=== PATIENT | female | born 1955 | race Caucasian/White ===

== ENCOUNTER 2019-12-07 08:15 | Outpatient (CLI) | payer MEDICARE ==
[~2019-12-07] VITALS: Ht 167.6 cm; Wt 130.3 kg
[~2019-12-07 08:15] MED LIST: ACET-789 PO; CHOL200014 PO; DOXA1TAB2 PO; FURO20TA4 PO; IBUP-1773 PO; METO100T12 PO; POTA10TA36 PO; SERT100T8 PO; TELM1TAB28 PO
[2019-12-07] MEDS ORDERED: DOXA2TAB2 PO (09:05)
[2019-12-07] MEDS ORDERED: ALLO100T PO (09:05)
== END 2019-12-07 09:05 | disposition home or self-care (01) ==
LOC: PREOP 08:15
PROVIDERS: ATTEND Surgery
DX: Z01.818 Encounter for other preprocedural examination (principal)

== ENCOUNTER 2019-12-09 09:48 | Day surgery (SDC) | payer MEDICARE ==
[2019-12-09] VITALS (15 sets, daily range): BP systolic 135–213; BP diastolic 57–83
[~2019-12-09] VITALS: Ht 167.6 cm; Wt 130.3 kg
[~2019-12-09 09:48] MED LIST changes: +ALLO100T PO; +DOXA2TAB2 PO; +NS IV 500 ML 500 ML ONE
[2019-12-09] MEDS ORDERED: NS IV 500 ML 500 ML IV PRN (09:49)
[2019-12-09] MEDS ORDERED: fentaNYL INJECTION 100 MCG/2 ML AMP IVP ONE (10:00)
[2019-12-09] MEDS ORDERED: LIDOCAINE JELLY 2% 6 ML SYRINGE MM PRN (10:00)
--- NOTE | 2019-12-09 10:15 | Conscious Sedation/ASA ---
Conscious Sedation Pre-Proced Time 09:00 ASA Score 2 For ASA 3 and 4: Consider anesthesia and medical clearance. Also, for patients with a history of failed moderate sedation consider anesthesia. Airway Lungs Heart ASA score ASA 1: a normal healthy patient ASA 2: a patient with a mild systemic disease (mid diabetes, controlled hypertension, obesity ASA 3: a patient with a severe systemic disease that limits activity (angina, COPD, prior Myocardial infarction) ASA 4: a patient with an incapacitating disease that is a constant threat to life (CHF, renal failure) ASA 5: a moribund patient not expected to survive 24 hrs. (ruptured aneurysm) ASA 6: a declared brain- patient whose organs are being harvested. For emergent operations, add the letter E after the classification Mallampati Classification Grade 2 Sedation Plan Analgesia, Amnesia, Plan communicated to team members, Discussed options with patient/fam, Discussed risks with patient/fam The patient is an appropriate candidate to undergo the planned procedure, sedation, and anesthesia. The patient immediately re-assessed prior to indication. ELIJAH AGUAYO MD Dec 09, 2019 10:15
--- NOTE | 2019-12-09 10:16 | Progress Note-Pre Operative ---
Pre-Operative Progress Note H&P Reviewed The H&P was reviewed, patient examined and no changes noted. Date Seen by Provider: Dec 09, 2019 Time Seen by Provider: 09:00 Date H&P Reviewed: Dec 09, 2019 Time H&P Reviewed: 09:00 Pre-Operative Diagnosis: screening ELIJAH Morris MD Dec 09, 2019 10:16
--- NOTE | 2019-12-09 10:17 | Discharge Inst-Surgical ---
D/C Lap Instructions-OLIVIER New, Converted, or Re-Newed RX: RX on Chart Follow Up Activity as tolerated High Fiber Diet 25g or more per day Avoid Alcohol, Caffeine, Spicy [place] and Acid foods. Drink 64 fluid oz or more of fluids per day. Symptoms to Report: Fever over 101 degree F, Nausea/Vomiting If any problems/questions: Contact your physician or go to Emergency Room ELIJAH AGUAYO MD Dec 09, 2019 10:17
[2019-12-09] MEDS ORDERED: morphine INJ 10 MG/ML 1ML (SYR OR VIAL) IVP PRN ×2 (10:30)
[2019-12-09] MEDS ORDERED: HYDROcodone/APAP 5 MG/325 MG (LORTAB) TAB PO PRN (10:30)
[2019-12-09] MEDS ORDERED: ONDANSETRON 4 MG/2 ML (SDV) Z0FRAN IVP PRN (10:30)
[2019-12-09] MEDS ORDERED: ACETAMINOPHEN 325 MG TABLET PO PRN (10:30)
[2019-12-09] MEDS ORDERED: LIDOCAINE JELLY 2% 6 ML SYRINGE ONE (10:35)
[2019-12-09] MEDS ORDERED: MIDAZOLAM 5 MG/5 ML (VERSED) VIAL ONE ×2 (10:35→10:36)
[2019-12-09] MEDS ORDERED: fentaNYL INJECTION 100 MCG/2 ML AMP ONE ×2 (10:36)
[2019-12-09] MEDS: MIDAZOLAM 5 MG/5 ML (VERSED) VIAL IV PRN ×5 (10:50→11:06)
--- NOTE | 2019-12-09 11:42 | Progress Note-Post Operative ---
Post-Operative Progess Note Surgeon (s)/Inclusion Manager (s) Surgeon ELIJAH AGUAYO MD Inclusion Manager: none Pre-Operative Diagnosis screening colo Post-Operative Diagnosis mild chronic stage 2 ext and int hemorrhoids, mild sigmoid diverticulosis. Procedure & Operative Findings Date of Procedure 12/09/19 Procedure Performed/Findings colonoscopy Anesthesia Type cs Estimated Blood Loss Estimated blood loss (mL): minimal Specimens/Packing Specimens Removed none ELIJAH AGUAYO MD Dec 09, 2019 11:42
--- NOTE | 2019-12-09 15:52 | OPERATIVE REPORT ---
DATE OF SERVICE: 12/09/2019 ATTENDING PRIMARY CARE PHYSICIAN: Louise Oakes MD. PREOPERATIVE DIAGNOSIS: Screening colonoscopy. POSTOPERATIVE DIAGNOSES: Mild chronic stage II external and internal hemorrhoids and mild sigmoid diverticulosis. PROCEDURE PERFORMED: Colonoscopy. SURGEON: Elijah Aguayo MD. ANESTHESIA: Conscious sedation. ESTIMATED BLOOD LOSS: Minimal. FINDINGS: Same as postoperative diagnoses. DISPOSITION: The patient tolerated the procedure well. INDICATIONS FOR PROCEDURE: The patient is a 64-year-old female referred over to us for a screening colonoscopy. She has not had a colonoscopy at this point in her life. She reports that she is otherwise doing well, does not report any major issues with diarrhea nor constipation as well as no red blood per rectum nor any dark tarry stools. She is unsure about family history for she is adopted. DESCRIPTION OF PROCEDURE: The patient was brought to the endoscopy suite and laid in the left lateral decubitus position. After adequate IV pain and sedative medications and conscious sedation anesthesia, a digital rectal examination was performed. Mild chronic stage II external and internal hemorrhoids were identified, which were not actively edematous nor inflamed and no bleeding. Normal sphincter tone was felt and there were no palpable masses. The endoscope was then intubated and the anus and the rectum gently insufflated. The endoscope was then advanced through the valves of Luther of the rectum with no polyps or any neoplasms identified through the sigmoid colon, there was a mild sigmoid diverticulosis. The endoscope was then advanced to the remainder of the descending, transverse and an ascending colon to the cecum. These segments were normal. There were no polyps or any neoplasms identified throughout the colon or rectum. The endoscope was then slowly withdrawn with taking a second look and suctioning of residual air with no additional findings. The patient tolerated the procedure well. We will recommend the necessary lifestyle and diet accommodation including incorporation of a high fiber diet with at least 25 grams of fiber on a daily basis as well as significant amounts of water to promote soft stools on a daily basis. She does not need another colonoscopy for another 10 years, especially if she is asymptomatic. Job ID: [id number] DocumentID: [id number] Dictated Date: 12/09/2019 11:29:42 Vp [employer] Date: 12/09/2019 15:51:20 Dictated By: ELIJAH AGUAYO MD
== END 2019-12-09 12:40 | disposition home or self-care (01) ==
LOC: ENDO 09:48
PROVIDERS: ATTEND Surgery
DX: Z12.11 Encounter for screening for malignant neoplasm of colon (principal); K57.30 Diverticulosis of large intestine without perforation or abscess without bleeding; K64.1 Second degree hemorrhoids; I10 Essential (primary) hypertension; M19.90 Unspecified osteoarthritis, unspecified site; M10.9 Gout, unspecified; F32.9 Major depressive disorder, single episode, unspecified; Z79.899 Other long term (current) drug therapy

== ENCOUNTER → 2019-12-15 | Outpatient (CLI) | payer MEDICARE ==
[~2019-12-15] MED LIST changes: -NS IV 500 ML 500 ML ONE
--- NOTE | 2019-12-15 11:59 | Diagnostic Imaging Report ---
INDICATION: Postmenopausal. COMPARISON: None. FINDINGS: The bone mineral density of the hips and spine was measured. The T-score for the spine is 3.0. The total T-score for the left hip is 2.0 and for the right hip 2.1. The T-score for the left femoral neck is 0.8 and for the right femoral neck 1.0. All of these values are within normal limits. AP Spine L1-L4: [BMD (g/cm2): 1.560] [T-Score: 3.0] [Z-Score: 3.4] [BMD Previous: NA] [BMD % Change: NA] LT Hip Neck: [BMD (g/cm2): 1.151] [T-Score: 0.8] [Z-Score: 1.5] LT Hip Total: [BMD (g/cm2):1.256] [T-Score:2.0] [Z-Score: 2.3] [BMD Previous: NA] [BMD % Change: NA] RT Hip Neck: [BMD (g/cm2):1.172] [T-Score:1.0] [Z-Score:1.7] RT Hip Total: [BMD (g/cm2):1.267] [T-score:2.1] [Z-Score:2.4] [BMD Previous:NA] [BMD % Change:NA] *Indicates significant change from prior examination based on 95% confidence level. World Health Organization criteria for BMD interpretation classify patients as Normal (T-score at or above -1.0), Osteopenic (T-score between -1.0 and -2.5) or Osteoporotic (T-score at or below -2.5). LIMITATIONS AND MODIFICATION: None. FRACTURE RISK (FRAX SCORE): The ten year probability of (%): Major Osteoporotic Fracture: [NA] Hip Fracture: [NA] IMPRESSION: 1. The bone mineral density of the spine, the hips, and the femoral necks is within normal limits. 2. See below National Osteoporosis Foundation guidelines on when to potentially initiate pharmacologic therapy. Based on the National Osteoporosis Foundation Guidelines, pharmacologic treatment should be initiated in any of the following, unless clinical conditions suggest otherwise: * Any patient with prior fragility fracture of the hip or vertebrae. A spine fracture indicates 5X risk for subsequent spine fracture and 2X risk for subsequent hip fracture. * Osteoporosis (T-score <-2.5). * Postmenopausal women and men age 50 and older with low bone mass/osteopenia (T-score between -1.0 and -2.5) by DXA and 10-year major osteoporotic fracture greater than 20% or a 10-year probability of hip fracture greater than 3%. These fracture risks are supplied above in the FRAX score, if applicable. * Clinician judgement and/or patient preferences may indicate treatment for people with 10-year fracture probabilities above or below these levels. Dictated by: Dictated on workstation # [id number]
--- NOTE | 2019-12-17 09:55 | Diagnostic Imaging Report ---
INDICATION: Routine screening. Comparison is made with prior mammogram 09/05/2015 and 02/15/2015. 2-D and 3-D bilateral screening mammography was performed with CAD. Both breasts remain heterogeneously dense, limiting the sensitivity of mammography. Benign calcifications in both breasts are again noted. Biopsy clip in the central left breast remains. Circumscribed nodular densities in the inner and outer aspect of the left breast are stable. No spiculated mass or malignant appearing microcalcifications are seen. Axillae are unremarkable. IMPRESSION: BI-RADS Category 2 No mammographic features suspicious for malignancy are identified. ACR BI-RADS Category 2: Benign findings. Result letter will be mailed to the patient. Note: At least 10% of breast cancer is not imaged by mammography. Dictated by: Dictated on workstation # [id number]
== END ==
LOC: RAD 10:00
PROVIDERS: ATTEND Family Medicine
DX: Z12.31 Encounter for screening mammogram for malignant neoplasm of breast (principal); Z78.0 Asymptomatic menopausal state
CPT/HCPCS: 77063; 77067; 77080

== ENCOUNTER → 2021-03-16 | Outpatient (CLI) | payer MEDICARE ==
[~2021-03-16] MED LIST changes: -POTA10TA36 PO; +POTA10TA37 PO; +SERT-414 PO; -SERT100T8 PO; -TELM1TAB28 PO; +TELM1TAB37 PO
--- NOTE | 2021-03-16 09:39 | Diagnostic Imaging Report ---
PROCEDURE: US Hepatic (Liver). TECHNIQUE: Multiple real-time grayscale images were obtained over the right upper quadrant in various projections. INDICATION: Epigastric pain. FINDINGS: The liver measures up to 20 cm and demonstrates increased echogenicity compatible with fatty infiltration. Hepatopetal flow in main portal vein. Common bile duct measures up to 1.2 cm. There appears to be cholelithiasis. There is mild gallbladder wall thickening up to 3 mm. Pancreas not well visualized. Aorta is nonaneurysmal. IVC is patent. Right kidney is normal. No ascites IMPRESSION: Hepatomegaly and fatty infiltration of the liver. Cholelithiasis and mild gallbladder wall thickening up to 3 mm. Prominence of the common bile duct up to 1.2 cm. The possibility of choledocholithiasis cannot be excluded. Recommend clinical correlation, if warranted followup with MRCP. Dictated by: Dictated on workstation # [id number]
== END ==
LOC: RAD 08:15
PROVIDERS: ATTEND Nurse Practitioner Family
DX: K76.0 Fatty (change of) liver, not elsewhere classified (principal); K80.20 Calculus of gallbladder without cholecystitis without obstruction; K82.8 Other specified diseases of gallbladder; R16.0 Hepatomegaly, not elsewhere classified; I10 Essential (primary) hypertension
CPT/HCPCS: 76705

== ENCOUNTER 2021-12-06 11:03 | Emergency (ER) | payer MEDICARE ==
[~2021-12-06] VITALS: Ht 167 cm; Wt 133.0 kg
[~2021-12-06 11:03] MED LIST changes: +POTA-177 PO; -POTA10TA37 PO
--- NOTE | 2021-12-06 11:35 | Diagnostic Imaging Report ---
INDICATION: Chest pain. TECHNIQUE: AP view of the chest is obtained. COMPARISON: No previous study is available for comparison at this time. FINDINGS: There is mild cardiomegaly. Pulmonary vascularity is unremarkable. There is no pneumothorax, consolidation or overt edema. No pleural fluid is seen. IMPRESSION: Cardiomegaly without acute abnormality. Dictated by: Dictated on workstation # [id number]
[2021-12-06 11:40] LABS: BASOPHILS % (AUTO) 0 % (0-10); EOSINOPHILS # (AUTO) 0.2 10^3/uL (0.0-0.3); EOSINOPHILS % (AUTO) 3 % (0-10); HEMATOCRIT 35 % (35-52); HEMOGLOBIN 11.4 g/dL (11.5-16.0); LYMPHOCYTES # (AUTO) 0.9 10^3/uL (1.0-4.0); LYMPHOCYTES % (AUTO) 13 % (12-44); MEAN CORPUSCULAR HEMOGLOBIN 30 pg (25-34); MEAN CORPUSCULAR HGB CONC 33 g/dL (32-36); MEAN CORPUSCULAR VOLUME 92 fL (80-99); MEAN PLATELET VOLUME 11.2 fL (9.0-12.2); MONOCYTES # (AUTO) 0.4 10^3/uL (0.0-1.0); MONOCYTES % (AUTO) 6 % (0-12); NEUTROPHILS % (AUTO) 78 % (42-75); PLATELET COUNT 152 10^3/uL (130-400); WHITE BLOOD COUNT 6.5 10^3/uL (4.3-11.0)
[2021-12-06] MEDS ORDERED: ASPIRIN 81 MG CHEW (CHILDREN'S ASA) PO ONE (11:45)
[2021-12-06] MEDS: NITROGLYCERIN 0.4 MG SL TABS BTL 25'S SL PRN ×2 (11:47→12:11)
--- NOTE | 2021-12-06 11:50 | ED Chest Pain ---
General Chief Complaint: Chest Pain Stated Complaint: CHEST PAIN Nursing Triage Note: Pt reports CP starting around 0400 this morning. Pt has not had any home meds today. Source: patient Exam Limitations: no limitations History of Present Illness Date Seen by Provider: Dec 06, 2021 Time Seen by Provider: 11:30 Initial Comments Patient is a 66 yo F who presents to the ED with anterior chest pain that began acutely this AM at 0400. She states the pain woke her up from sleep. The pain was initially an 8/10 but has slightly improved since that time. She states the pain is constant but intermittently worsens. The pain does not radiate anywhere. She denies any tearing sensation. Had some nausea initially but this has since improved. No diaphoresis or shortness of air. No acutely increased dependent edema. No URI symptoms recently. Has not had anything to eat today. No alleviating or aggravating factors noted. Recently had a cholecystectomy in [facility] but denies any lingering issues. Is immunized and boosted for COVID. Denies any h/o smoking. Timing/Duration: 4-6 hours Severity/Quality: moderate Location: substernal, epigastric Radiation: no radiation Activities at Onset: none Prior CP/Workup: no prior chest pain ASA po SWEAT BAND SEWER: No NTG SL SWEAT BAND SEWER: No Associated Symptoms: denies symptoms Allergies and Home Medications Allergies Coded Allergies: No Known Drug Allergies (Unverified , 09/15/15) Patient Home Medication List Home Medication List Reviewed: Yes Allopurinol (Allopurinol) 100 Mg Tablet, 100 MG PO DAILY, (Reported) Entered as Reported by: CALIXTO VOGEL on 12/07/19 09 Doxazosin Mesylate (Doxazosin Mesylate) 2 Mg Tablet, 2 MG PO BID, (Reported) Entered as Reported by: CALIXTO VOGEL on 12/07/19 0905 Metoprolol Tartrate (Metoprolol Tartrate) 100 Mg Tablet, 100 MG PO BID, (Reported) Entered as Reported by: CALIXTO VOGEL on 09/15/15 0925 Potassium Chloride (Potassium Chloride) 10 Meq Tab.er.prt, 10 MEQ PO BID, (Reported) Entered as Reported by: CALIXTO VOGEL on 09/15/15 0925 Sertraline HCl (Sertraline HCl) 100 Mg Tablet, 100 MG PO DAILY, (Reported) Entered as Reported by: CALIXTO VOGEL on 09/15/15924 Telmisartan/Hydrochlorothiazid (Telmisartan-Hctz 80-25 mg Tab) 1 Each Tablet, 1 EACH PO DAILY, (Reported) Entered as Reported by: CALIXTO VOGEL on 09/15/15924 Review of Systems Review of Systems Constitutional: no symptoms reported EENTM: No Symptoms Reported Respiratory: No Symptoms Reported Cardiovascular: See HPI, Chest Pain Gastrointestinal: See HPI, Nausea Genitourinary: No Symptoms Reported Musculoskeletal: no symptoms reported Skin: no symptoms reported Psychiatric/Neurological: No Symptoms Reported Endocrine: No Symptoms Reported Hematologic/Lymphatic: No Symptoms Reported Past Gpvqwzp-Jmdmvx-Cjaice Hx Patient Social History Tobacco Use?: No Substance use?: No Alcohol Use?: No Immunizations Up To Date COVID19 Vaccine Automobile Accessories Installer: [email or web address] Seasonal Allergies Seasonal Allergies: No Past Medical History Surgery/Hospitalization HX: hypertension, recent gallbladder surgery Surgeries: Yes (breast bx x2, bilat TKR, D&C) Section, Joint Replacement Respiratory: No Cardiac: Yes Hypertension Neurological: No Reproductive Disorders: Yes Genitourinary: No Gastrointestinal: No Musculoskeletal: Yes Arthritis, Gout Endocrine: No HEENT: No Cancer: No Psychosocial: Yes Depression Integumentary: No Blood Disorders: No Family Medical History No Pertinent Family Hx Physical Exam Vital Signs Vital Signs - First Documented 12/06/21 11:09 Temp 36.6 Pulse 59 B/P (MAP) 234/110 (151) Pulse Ox 98 O2 Delivery Room Air Capillary Refill : Less Than 3 Seconds Height, Weight, BMI Height: 5'6" Weight: 300lbs. 0.0oz. 136.559824ps; 47.00 BMI Method:Stated General Appearance: No Apparent Distress, WD/WN HEENT: PERRL/EOMI, TMs Normal, Normal ENT Inspection, Pharynx Normal Neck: Full Range of Motion, Normal Inspection, Non Tender Respiratory: Chest Non Tender, Lungs Clear, Normal Breath Sounds, No Accessory Muscle Use, No Respiratory Distress Cardiovascular: Regular Rate, Rhythm, No Edema, No Gallop, No JVD, No Murmur, Normal Peripheral Pulses Gastrointestinal: Normal Bowel Sounds, No Organomegaly, No Pulsatile Mass, Non Tender (epigastric TTP without guarding) Extremity: Normal Capillary Refill, Normal Inspection, Normal Range of Motion, Non Tender, No Calf Tenderness, No Pedal Edema Neurologic/Psychiatric: Alert, Oriented x3, No Motor/Sensory Deficits, Normal Mood/Affect Skin: Normal Color, Warm/Dry Progress/Results/Core Measures Results/Orders Lab Results Laboratory Tests Test 12/06/21 11:20 Range/Units White Blood Count 6.5 4.3-11.0 10^3/uL Red Blood Count 3.83 3.80-5.11 10^6/uL Hemoglobin 11.4 L 11.5-16.0 g/dL Hematocrit 35 35-52 % Mean Corpuscular Volume 92 80-99 fL Mean Corpuscular Hemoglobin 30 25-34 pg Mean Corpuscular Hemoglobin Concent 33 32-36 g/dL Red Cell Distribution Width 14.6 H 10.0-14.5 % Platelet Count 152 130-400 10^3/uL Mean Platelet Volume 11.2 9.0-12.2 fL Immature Granulocyte % (Auto) 0 % Neutrophils (%) (Auto) 78 H 42-75 % Lymphocytes (%) (Auto) 13 12-44 % Monocytes (%) (Auto) 6 0-12 % Eosinophils (%) (Auto) 3 0-10 % Basophils (%) (Auto) 0 0-10 % Neutrophils # (Auto) 5.0 1.8-7.8 10^3/uL Lymphocytes # (Auto) 0.9 L 1.0-4.0 10^3/uL Monocytes # (Auto) 0.4 0.0-1.0 10^3/uL Eosinophils # (Auto) 0.2 0.0-0.3 10^3/uL Basophils # (Auto) 0.0 0.0-0.1 10^3/uL Immature Granulocyte # (Auto) 0.0 0.0-0.1 10^3/uL Prothrombin Time 14.2 12.2-14.7 SEC INR Comment 1.1 0.8-1.4 Activated Partial Thromboplast Time 32 24-35 SEC D-Dimer 0.45 0.00-0.49 UG/ML Sodium Level 143 135-145 MMOL/L Potassium Level 3.7 3.6-5.0 MMOL/L Chloride Level 100 98-107 MMOL/L Carbon Dioxide Level 31 21-32 MMOL/L Anion Gap 12 5-14 MMOL/L Blood Urea Nitrogen 16 7-18 MG/DL Creatinine 0.77 0.60-1.30 MG/DL Estimat Glomerular Filtration Rate 84 BUN/Creatinine Ratio 21 Glucose Level 166 H 70-105 MG/DL Calcium Level 9.9 8.5-10.1 MG/DL Corrected Calcium 9.6 8.5-10.1 MG/DL Magnesium Level 1.8 1.6-2.4 MG/DL Total Bilirubin 1.6 H 0.1-1.0 MG/DL Aspartate Amino Transf (AST/SGOT) 24 5-34 U/L Alanine Aminotransferase (ALT/SGPT) 21 0-55 U/L Alkaline Phosphatase 65 40-136 U/L Total Creatine Kinase 56 29-168 U/L Creatine Kinase MB 0.8 <6.6 NG/ML Myoglobin 42.9 10.0-92.0 NG/ML Troponin I < 0.028 <0.028 NG/ML B-Type Natriuretic Peptide 142.6 H <100.0 PG/ML Total Protein 7.3 6.4-8.2 GM/DL Albumin 4.4 3.2-4.5 GM/DL My Orders Orders - FRANCIS ARROYO [employer] Nitroglycerin 0.4 Mg Btl 25's (Nitrostat (12/06/21 11:45) Aspirin Chewable Tablet (Baby Aspirin Ch (12/06/21 11:45) Antacid Suspension (Mylanta Suspension (12/06/21 12:45) Medications Given in ED Current Medications Medications Dose Ordered Sig/Larisa Route Start Time Stop Time Status Last Admin Dose Admin Al Hydrox/Mg Hydrox/Simethicone 30 ml ONCE ONCE PO 12/06/21 12:45 12/06/21 12:46 DC 12/06/21 12:42 30 ML Aspirin 324 mg ONCE ONCE PO 12/06/21 11:45 12/06/21 11:46 DC 12/06/21 11:47 324 MG Nitroglycerin 0.4 mg UD PRN SL 12/06/21 11:45 12/06/21 12:11 0.4 MG Vital Signs/I&O 12/06/21 11:09 Temp 36.6 Pulse 59 B/P (MAP) 234/110 (151) Pulse Ox 98 O2 Delivery Room Air Blood Pressure Mean: 151 Progress Progress Note #1: Time: 12:30 Progress Note Pt states her epigastric/lower substernal pain persists despite administration of nitroglycerin and ASA. She does have some mild subxyphoid epigastric TTP. Cardiopulmonary exam remains reassuring. Pt is hypertensive but states she did not take any of her normal antihypertensives today. Laboratory evaluation is reassuring. She has a grossly normal CBC, coags, and CMP. Troponin is normal. No need for a repeat as the pain has been present for almost 6 hours at the time of initial presentation. Chest xray shows mild cardiomegaly but nothing else acute. BNP is mildly elevated but patient does not exhibit symptoms c/w CHF exacerbatio n. Will give a dose of Maalox and see if this improves symptoms. Progress Note #2: Progress Note Pt with marked improvement after the Maalox. Further makes cardiopulmonary origin of symptoms less likely. Will discharge home with recs for supportive care and follow-up with PCP for recheck in 2-3 days. Return precautions for urgent symptomology discussed. Patient verbalized understanding. Initial ECG Impression Date: Dec 06, 2021 Initial ECG Impression Time: 11:13 Initial ECG Rate: 060 Initial ECG Rhythm: Normal Sinus Initial ECG Intervals: QT (slightly prolonged) Initial ECG Impression: Nonspecific Changes Diagnostic Imaging Diagonstic Imaging: Xray Plain Films/CT/US/NM/MRI: chest Reviewed: Reviewed Night [facility] Study Departure Impression Primary Impression: Gastritis Disposition: 01 HOME, SELF-CARE Condition: Improved Departure-Patient Inst. Decision time for Depature: 13:25 Referrals: TIM OROZCO MD (PCP/Family) Primary Care Physician Patient Instructions: Gastritis (DC) Scripts Sucralfate (Sucralfate) 1 Gram/10 Ml Oral.susp 1 GM PO TIDWM for 14 Days, #21 ML Prov: FRANCIS ARROYO APRN 12/06/21 FRANCIS ARROYO APRN Dec 06, 2021 11:50
[2021-12-06 11:52] LABS: ALBUMIN 4.4 GM/DL (3.2-4.5); POTASSIUM 3.7 MMOL/L (3.6-5.0)
[2021-12-06 11:53] LABS: CALCIUM 9.9 MG/DL (8.5-10.1)
[2021-12-06 11:54] LABS: INR 1.1 (0.8-1.4); PROTHROMBIN TIME PATIENT 14.2 SEC (12.2-14.7); TOTAL PROTEIN 7.3 GM/DL (6.4-8.2)
[2021-12-06 11:56] LABS: BILIRUBIN,TOTAL 1.6 MG/DL (0.1-1.0)
[2021-12-06 11:58] LABS: CREATININE SERUM 0.77 MG/DL (0.60-1.30)
[2021-12-06 12:01] LABS: MAGNESIUM 1.8 MG/DL (1.6-2.4)
[2021-12-06 12:09] LABS: CREATINE KINASE MB 0.8 NG/ML (<6.6)
[2021-12-06] MEDS ORDERED: ANTACID SUSP 30 ML UDC (MYLANTA) PO ONE (12:45)
[2021-12-06] MEDS ORDERED: SUCR1ORA15 PO (13:26)
[2021-12-06 14:37] VITALS: BP 217/91
== END 2021-12-06 14:37 | disposition home or self-care (01) ==
LOC: EDUNIT# 11:03 → ER 11:07
DX: K29.70 Gastritis, unspecified, without bleeding (principal); R79.89 Other specified abnormal findings of blood chemistry; Z90.49 Acquired absence of other specified parts of digestive tract; Z28.310 Unvaccinated for COVID-19
CPT/HCPCS: 36415; 71045; 80053; 82550; 82553; 83735; 83874; 83880; 84484; 85025; 85379; 85610; 85730; 93005; 93041

== ENCOUNTER 2021-12-08 08:17 | Observation (INO) | payer MEDICARE ==
[~2021-12-08] VITALS: Ht 167.6 cm; Wt 135.3 kg
[~2021-12-08 08:17] MED LIST changes: +SUCR1ORA15 PO
[2021-12-08] MEDS ORDERED: ANTACID SUSP 30 ML UDC (MYLANTA) PO ONE (08:45)
[2021-12-08] MEDS ORDERED: ASPIRIN 81 MG CHEW (CHILDREN'S ASA) PO ONE (08:45)
[2021-12-08] MEDS ORDERED: ONDANSETRON 4 MG/2 ML (SDV) Z0FRAN IVP ONE (08:45)
[2021-12-08] MEDS ORDERED: NITROGLYCERIN 0.4 MG SL TABS BTL 25'S SL PRN (08:45)
[2021-12-08] MEDS ORDERED: LIDOCAINE 2% VISCOUS 15 ML UDC PO ONE (08:45)
[2021-12-08 08:47] LABS: BASOPHILS % (AUTO) 0 % (0-10); EOSINOPHILS % (AUTO) 1 % (0-10); HEMATOCRIT 35 % (35-52); HEMOGLOBIN 11.3 g/dL (11.5-16.0); LYMPHOCYTES # (AUTO) 0.8 10^3/uL (1.0-4.0); LYMPHOCYTES % (AUTO) 9 % (12-44); MEAN CORPUSCULAR HEMOGLOBIN 29 pg (25-34); MEAN CORPUSCULAR HGB CONC 33 g/dL (32-36); MEAN CORPUSCULAR VOLUME 90 fL (80-99); MEAN PLATELET VOLUME 11.2 fL (9.0-12.2); MONOCYTES # (AUTO) 0.6 10^3/uL (0.0-1.0); MONOCYTES % (AUTO) 6 % (0-12); NEUTROPHILS # (AUTO) 7.2 10^3/uL (1.8-7.8); NEUTROPHILS % (AUTO) 83 % (42-75); PLATELET COUNT 148 10^3/uL (130-400); WHITE BLOOD COUNT 8.6 10^3/uL (4.3-11.0)
[2021-12-08 08:57] LABS: ALBUMIN 4.6 GM/DL (3.2-4.5); CHLORIDE 99 MMOL/L (98-107); POTASSIUM 3.3 MMOL/L (3.6-5.0); SODIUM 142 MMOL/L (135-145)
[2021-12-08 08:59] LABS: CALCIUM 9.6 MG/DL (8.5-10.1)
[2021-12-08 09:00] LABS: GLUCOSE 183 MG/DL (70-105); TOTAL PROTEIN 7.6 GM/DL (6.4-8.2)
[2021-12-08 09:01] LABS: CARBON DIOXIDE 29 MMOL/L (21-32)
[2021-12-08 09:02] LABS: BILIRUBIN,TOTAL 2.5 MG/DL (0.1-1.0)
[2021-12-08 09:03] LABS: ALKALINE PHOSPHATASE 68 U/L (40-136); INR 1.1 (0.8-1.4)
[2021-12-08 09:04] LABS: CREATININE SERUM 0.73 MG/DL (0.60-1.30); GFR ESTIMATED 90
[2021-12-08 09:05] LABS: BUN/CREATININE RATIO 19
[2021-12-08 09:06] LABS: ALANINE AMINOTRANSFERASE 19 U/L (0-55); MAGNESIUM 2.1 MG/DL (1.6-2.4)
--- NOTE | 2021-12-08 09:20 | Diagnostic Imaging Report ---
EXAMINATION: Chest 1 view HISTORY: Chest pain COMPARISON: 12/06/2021 FINDINGS: Heart size and pulmonary vasculature are stable. The lungs are clear without consolidation, pleural effusion, or pneumothorax. The osseous structures are intact. IMPRESSION: 1. Stable cardiomegaly without other acute radiographic abnormality in the chest. Dictated by: Dictated on workstation # [id number]
--- NOTE | 2021-12-08 11:02 | ED Chest Pain ---
General Chief Complaint: Chest Pain Stated Complaint: CHEST/UPPER ABD PAIN Source: patient Exam Limitations: no limitations History of Present Illness Date Seen by Provider: Dec 08, 2021 Time Seen by Provider: 08:36 Initial Comments This is 66-year-old woman presents to the emergency room complaining of chest pain that radiates to her epigastric region. She had a similar episode to this on Saturday and presented to the ER for evaluation of chest pain. She was cleared and thought to have gastritis. She was prescribed Carafate and discharged. She states this also felt similar to gallbladder attacks prior to her cholecystectomy in May. She had gallstones with ERCP followed by cholecystectomy. Yesterday she felt chilled. She has been hurting nonstop for about 12 hours. Pain is worse with lying down. She has had dry heaves. She has had some mild shortness of air as well. She is notably hypertensive, and she did not take her blood pressure medications yet today. Dr. White is her instructional material director. Dr. Oakes is her primary care provider. Allergies and Home Medications Allergies Coded Allergies: No Known Drug Allergies (Unverified , 09/15/15) Patient Home Medication List Home Medication List Reviewed: Yes Allopurinol (Allopurinol) 100 Mg Tablet, 100 MG PO DAILY, (Reported) Entered as Reported by: CALIXTO VOGEL on 12/07/19904 Last Action: Last Taken Edited Doxazosin Mesylate (Doxazosin Mesylate) 2 Mg Tablet, 2 MG PO BID, (Reported) Entered as Reported by: CALIXTO VOGEL on 12/07/19904 Last Action: Last Taken Edited Metoprolol Tartrate (Metoprolol Tartrate) 100 Mg Tablet, 100 MG PO BID, (Reported) Entered as Reported by: CALIXTO VOGEL on 09/15/15924 Last Action: Last Taken Edited Potassium Chloride (Potassium Chloride) 10 Meq Tab.er.prt, 10 MEQ PO BID, (Reported) Entered as Reported by: CALIXTO VOGEL on 09/15/15924 Last Action: Last Taken Edited Sertraline HCl (Sertraline HCl) 100 Mg Tablet, 100 MG PO DAILY, (Reported) Entered as Reported by: CALIXTO VOGEL on 09/15/15924 Last Action: Last Taken Edited Sucralfate (Sucralfate) 1 Gram/10 Ml Oral.susp, 1 GM PO TIDWM Prescribed by: Edwin Whitt on 12/06/21 1326 Last Action: Last Taken Edited Telmisartan/Hydrochlorothiazid (Telmisartan-Hctz 80-25 mg Tab) 1 Each Tablet, 1 EACH PO DAILY, (Reported) Entered as Reported by: CALIXTO VOGEL on 09/15/15 0967 Last Action: Last Taken Edited Review of Systems Review of Systems Constitutional: see HPI EENTM: No Symptoms Reported Respiratory: See HPI Cardiovascular: See HPI Gastrointestinal: See HPI Genitourinary: No Symptoms Reported Musculoskeletal: no symptoms reported Skin: no symptoms reported Psychiatric/Neurological: No Symptoms Reported Endocrine: No Symptoms Reported Hematologic/Lymphatic: No Symptoms Reported Past Tghpjlu-Fddozx-Cdrwaj Hx Patient Social History Tobacco Use?: No Use of E-Cig and/or Vaping dev: No Substance use?: No Alcohol Use?: No Immunizations Up To Date First/Initial COVID19 Vaccinat: 2020 Second COVID19 Vaccination Corky: 2020 Seasonal Allergies Seasonal Allergies: No Past Medical History Surgery/Hospitalization HX: htn, gout, depression, mayelin Surgeries: Yes (breast bx x2, bilat TKR, D&C) Breast (Biopsy), Section, Eye Surgery (Cataracts), Gallbladder, Joint Replacement, Orthopedic Respiratory: No Cardiac: Yes Hypertension Neurological: No Reproductive Disorders: Yes Genitourinary: No Gastrointestinal: No Musculoskeletal: Yes Arthritis, Gout Endocrine: No HEENT: No Cancer: No Psychosocial: Yes Depression Integumentary: No Blood Disorders: No Family Medical History No Pertinent Family Hx Physical Exam Vital Signs Vital Signs - First Documented 12/08/21 08:18 Temp 36.6 Pulse 77 Resp 18 B/P (MAP) 225/107 (146) Pulse Ox 94 O2 Delivery Room Air Capillary Refill : Height, Weight, BMI Height: 5'6" Weight: 300lbs. 0.0oz. 136.669226co; 47.00 BMI Method:Stated General Appearance: WD/WN, Moderate Distress, Obese HEENT: PERRL/EOMI, Normal ENT Inspection Neck: Normal Inspection Respiratory: Chest Non Tender, Lungs Clear, Normal Breath Sounds, No Accessory Muscle Use Cardiovascular: Regular Rate, Rhythm, No Edema, No Murmur Gastrointestinal: Normal Bowel Sounds, Non Tender, Soft; No Distended; Tenderness (Epigastrium) Extremity: Normal Inspection, Non Tender, No Pedal Edema Neurologic/Psychiatric: Alert, Oriented x3, No Motor/Sensory Deficits, Normal Mood/Affect Skin: Normal Color, Warm/Dry Progress/Results/Core Measures Results/Orders Lab Results Laboratory Tests Test 12/08/21 08:26 12/08/21 08:27 12/08/21 09:33 Range/Units TSH Emmons Testing 2.46 0.35-4.94 UIU/ML White Blood Count 8.6 4.3-11.0 10^3/uL Red Blood Count 3.86 3.80-5.11 10^6/uL Hemoglobin 11.3 L 11.5-16.0 g/dL Hematocrit 35 35-52 % Mean Corpuscular Volume 90 80-99 fL Mean Corpuscular Hemoglobin 29 25-34 pg Mean Corpuscular Hemoglobin Concent 33 32-36 g/dL Red Cell Distribution Width 14.6 H 10.0-14.5 % Platelet Count 148 130-400 10^3/uL Mean Platelet Volume 11.2 9.0-12.2 fL Immature Granulocyte % (Auto) 1 % Neutrophils (%) (Auto) 83 H 42-75 % Lymphocytes (%) (Auto) 9 L 12-44 % Monocytes (%) (Auto) 6 0-12 % Eosinophils (%) (Auto) 1 0-10 % Basophils (%) (Auto) 0 0-10 % Neutrophils # (Auto) 7.2 1.8-7.8 10^3/uL Lymphocytes # (Auto) 0.8 L 1.0-4.0 10^3/uL Monocytes # (Auto) 0.6 0.0-1.0 10^3/uL Eosinophils # (Auto) 0.0 0.0-0.3 10^3/uL Basophils # (Auto) 0.0 0.0-0.1 10^3/uL Immature Granulocyte # (Auto) 0.0 0.0-0.1 10^3/uL Erythrocyte Sedimentation Rate 39 H 0-30 MM/HR Prothrombin Time 15.0 H 12.2-14.7 SEC INR Comment 1.1 0.8-1.4 Activated Partial Thromboplast Time 30 24-35 SEC Sodium Level 142 135-145 MMOL/L Potassium Level 3.3 L 3.6-5.0 MMOL/L Chloride Level 99 98-107 MMOL/L Carbon Dioxide Level 29 21-32 MMOL/L Anion Gap 14 5-14 MMOL/L Blood Urea Nitrogen 14 7-18 MG/DL Creatinine 0.73 0.60-1.30 MG/DL Estimat Glomerular Filtration Rate 90 BUN/Creatinine Ratio 19 Glucose Level 183 H 70-105 MG/DL Calcium Level 9.6 8.5-10.1 MG/DL Corrected Calcium 8.5-10.1 MG/DL Magnesium Level 2.1 1.6-2.4 MG/DL Total Bilirubin 2.5 H 0.1-1.0 MG/DL Aspartate Amino Transf (AST/SGOT) 19 5-34 U/L Alanine Aminotransferase (ALT/SGPT) 19 0-55 U/L Alkaline Phosphatase 68 40-136 U/L Myoglobin 58.3 10.0-92.0 NG/ML Troponin I < 0.028 <0.028 NG/ML C-Reactive Protein High Sensitivity 4.13 H 0.00-0.50 MG/DL Total Protein 7.6 6.4-8.2 GM/DL Albumin 4.6 H 3.2-4.5 GM/DL Lipase 16 8-78 U/L Influenza Type A (RT-PCR) Not Detected Not Detecte Influenza Type B (RT-PCR) Not Detected Not Detecte SARS-CoV-2 RNA (RT-PCR) Not Detected Not Detecte My Orders Orders - ADELA TOURE MD Ekg Tracing (12/08/21 08:22) Cbc With Automated Diff (12/08/21 08:31) Magnesium (12/08/21 08:31) Chest 1 View, Ap/Pa Only (12/08/21 08:31) Comprehensive Metabolic Panel (12/08/21 08:31) Myoglobin Serum (12/08/21 08:31) Protime With Inr (12/08/21 08:31) Partial Thromboplastin Time (12/08/21 08:31) O2 (12/08/21 08:31) Monitor-Rhythm Ecg Trace Only (12/08/21 08:31) Lipid Panel (12/09/21 06:00) Ed Iv/Invasive Line Start (12/08/21 08:31) Troponin I Hanna (12/08/21 08:31) Ondansetron Injection (Zofran Injectio (12/08/21 08:45) Nitroglycerin 0.4 Mg Btl 25's (Nitrostat (12/08/21 08:45) Aspirin Chewable Tablet (Baby Aspirin Ch (12/08/21 08:45) Lidocaine 2% Viscous 15 Ml (Xylocaine Vi (12/08/21 08:45) Antacid Suspension (Mylanta Suspension (12/08/21 08:45) Lipase (12/08/21 08:42) Covid 19 Inhouse Test (12/08/21 09:24) Influenza A And B By Pcr (12/08/21 09:24) Pantoprazole Injection (Protonix Injecti (12/08/21 11:15) Fentanyl Inj (Sublimaze Injection) (12/08/21 13:45) Ct Sherin Chest/Noang Abd-Pelv W (12/08/21 13:31) Iohexol Injection (Omnipaque 350 Mg/Ml 1 (12/08/21 13:45) Received Contrast (Hold Metformin- Contr (12/08/21 13:45) Ns (Ivpb) (Sodium Chloride 0.9% Ivpb Bag (12/08/21 13:45) Thyroid Analyzer (12/08/21 14:18) Hydralazine Injection (Apresoline Inject (12/08/21 15:15) Us Gallbladder [id number] (12/08/21 15:05) Hs C Reactive Protein (12/08/21 15:43) Erythrocyte Sedimentation Rate (12/08/21 15:43) Medications Given in ED Current Medications Medications Dose Ordered Sig/Larisa Route Start Time Stop Time Status Last Admin Dose Admin Al Hydrox/Mg Hydrox/Simethicone 30 ml ONCE ONCE PO 12/08/21 08:45 12/08/21 08:46 DC 12/08/21 08:52 30 ML Aspirin 324 mg ONCE ONCE PO 12/08/21 08:45 12/08/21 08:46 DC 12/08/21 08:52 324 MG Fentanyl Citrate 75 mcg ONCE ONCE IVP 12/08/21 13:45 12/08/21 13:46 DC 12/08/21 14:04 50 MCG Hydralazine HCl 10 mg ONCE ONCE IV 12/08/21 15:15 12/08/21 15:16 DC 12/08/21 15:26 10 MG Iohexol 100 ml ONCE ONCE IV 12/08/21 13:45 12/08/21 13:46 DC 12/08/21 13:46 88 ML Lidocaine HCl 15 ml ONCE ONCE PO 12/08/21 08:45 12/08/21 08:46 DC 12/08/21 08:52 15 ML Nitroglycerin 0.4 mg UD PRN SL 12/08/21 08:45 12/08/21 08:52 0.4 MG Ondansetron HCl 8 mg ONCE ONCE IVP 12/08/21 08:45 12/08/21 08:46 DC 12/08/21 08:52 8 MG Pantoprazole 40 mg ONCE ONCE IV 12/08/21 11:15 12/08/21 11:16 DC 12/08/21 11:47 40 MG Sodium Chloride 100 ml ONCE ONCE IV 12/08/21 13:45 12/08/21 13:46 DC 12/08/21 13:46 80 ML Vital Signs/I&O 12/08/21 12/08/21 08:18 08:18 Temp 36.6 Pulse 77 Resp 18 B/P (MAP) 225/107 (146) Pulse Ox 94 O2 Delivery Room Air Progress Progress Note #1: Time: 11:01 Progress Note Patient did not appreciate a significant improvement in symptoms with nitroglycerin. However, she did notice significant improvement with GI cocktail and Zofran. She states pain dropped from 7/10 down to 1/10. Symptoms seem consistent with gastritis and/or esophagitis from GERD. Symptoms are worse when lying flat and that woke her at 0400 this morning. She was prescribed Carafate at her prior visit but she is taking the tablets whole 3 times a day. I have suggested changing this to crush tablets and a slurry and taking them 4 times a day. Additionally, I am adding a PPI. Blood pressure remains quite high. Last systolic blood pressure was 204. She did have some improvement after nitroglycerin but it is now elevated. She takes multiple blood pressure medications and was instructed to take her morning medications now. We will monitor her for a period of time and ensure her blood pressure is trending downward prior to departure. She has an appointment with Dr. Oakes at 1500 today. She is going to keep that appointment and discuss the recommendations we have made from the ER. Progress Note #2: Time: 13:37 Progress Note Patient's blood pressure was improving to the 180s systolic after taking her home medications. However, her systolic blood pressure is now again over 200. Her pain is also increasing. I have spoken with Dr. Oakes. She and I agree the patient should have further work-up and be admitted for control of her blood pressure. She also had significantly elevated blood pressure on her visit [address] angiogram of the chest and abdomen has been ordered for further evaluation. Fentanyl has been ordered for pain. If fentanyl does not improve her blood pressure, we will add an IV antihypertensive. Progress Note #3: Progress Note Blood pressure improved satisfactorily with a dose of hydralazine IV. Patient was admitted with parameters for as needed hydralazine use. Initial ECG Impression Date: Dec 08, 2021 Initial ECG Impression Time: 08:18 Initial ECG Rate: 73 Initial ECG Rhythm: Normal Sinus Comment Sinus rhythm with no ST elevation or depression. Prolonged QT C of 619, QTC of 561. No axis deviation. Diagnostic Imaging Diagonstic Imaging: Xray Plain Films/CT/US/NM/MRI: chest Comments NAME: [facility] REC#: [id number] PT STATUS: REG ER : 1955 PHYSICIAN: ADELA TOURE MD ADMIT DATE: 12/08/21/ER Signed Date of Exam:12/08/21 CHEST 1 VIEW, AP/PA ONLY EXAMINATION: Chest 1 view HISTORY: Chest pain COMPARISON: 12/06/2021 FINDINGS: Heart size and pulmonary vasculature are stable. The lungs are clear without consolidation, pleural effusion, or pneumothorax. The osseous structures are intact. IMPRESSION: 1. Stable cardiomegaly without other acute radiographic abnormality in the chest. Dictated by: Dictated on workstation # [id number] Dict: 12/08/21914 Trans: 12/08/21926 [facility] [id number] Interpreted by: ELENA LAZO DO Electronically signed by: ELENA LAZO DO 12/08/21926 Diagonstic Imaging: CT Plain Films/CT/US/NM/MRI: chest, abdomen, pelvis Comments CT angiogram chest not angiogram abdomen and pelvis viewed by me and report reviewed. See report below: NAME: DUSTIN [facility] REC#: [id number] PT STATUS: REG ER : 1955 PHYSICIAN: ADELA TOURE MD ADMIT DATE: 12/08/21/ER Signed Date of Exam:12/08/21 CT SHERIN CHEST/NOANG ABD-PELV W INDICATION: Chest and abdomen pain, HTN. EXAMINATION: CTA chest, abdomen, and pelvis. TECHNIQUE: Thin axial sections through the chest, abdomen and pelvis are obtained following intravenous contrast bolus. Multiplanar MIP images were reconstructed and reviewed. All CT scans use one or more of the following dose optimizing techniques: Automated exposure control, MA and/or KvP adjustment based on patient size and exam type or iterative reconstruction. CT ANGIOGRAM CHEST: FINDINGS: Evaluation of the pulmonary arterial system is without evidence of thromboembolism. No filling defects are seen within central, lobar, or segmental branches. Thoracic aorta is normal in caliber. No dissection is identified. No pericardial fluid is seen. There is trace pleural fluid or pleural thickening on the right. No discrete pulmonary mass or infiltrate is seen. There is some atelectasis in the lingula. IMPRESSION: No evidence of pulmonary embolism or acute aortic disease. CT ABDOMEN AND PELVIS WITH CONTRAST: FINDINGS: No discrete liver mass is detected. The patient has had a cholecystectomy. However, there appears to be a residual stone at the gallbladder bed with some mild surrounding fluid and inflammation. There is no biliary ductal dilatation. The pancreas is unremarkable. Spleen is enlarged at 15.6 cm. No adrenal mass is identified. Kidneys are unremarkable apart from a small cortical low-attenuation lesion in the upper pole of the right kidney suggestive of a cyst. Aorta is calcified but nonaneurysmal. Bowel loops are normal in caliber. There is diverticulosis of the descending and sigmoid colon, but no evidence of acute diverticulitis. There is no free fluid or fluid collection. The bladder and uterus are unremarkable. There is a fat-containing umbilical hernia. IMPRESSION: 1. Status post cholecystectomy. There appears to be a residual stone at the gallbladder bed with minimal surrounding fluid and inflammation. 2. Splenomegaly. 3. Uncomplicated diverticulosis. 4. Fat-containing umbilical hernia. Dictated by: Dictated on workstation # [id number] Dict: 12/08/21 1435 Trans: 12/08/21 1505 [id number] Interpreted by: PATRICIA BAGLEY MD Electronically signed by: PATRICIA BAGLEY MD 12/08/21 1225 Diagonstic Imaging: Ultrasound Plain Films/CT/US/NM/MRI: abdomen Comments Ultrasound discussed with the hand molder and caster and report reviewed. See report below: NAME: [facility]IN [facility] REC#: [id number] PT STATUS: REG ER : 1955 PHYSICIAN: ADELA TOURE MD ADMIT DATE: 12/08/21/ER Signed Date of Exam:12/08/21 US GALLBLADDER [id number] PROCEDURE: US Gallbladder. TECHNIQUE: Multiple real-time grayscale images were obtained over the right upper quadrant in various projections. INDICATION: Epigastric pain and abnormal CT scan. Correlation is made CT study earlier same day. Liver is enlarged 22 cm. Portal vein is patent and shows normal direction of flow. There is some generalized increased echogenicity liver consistent with hepatic steatosis. Gallbladder has been surgically removed. There is a shadowing echogenic structure in the gallbladder fossa correlating with a calcific density noted on CT. This does have a small amount of surrounding fluid measuring 2.9 x 1.7 x 2.1 cm. Stone measures 1.6 x 1.3 x 2.1 cm. There is no biliary ductal dilatation identified. Visualized pancreas unremarkable. Aorta is nonaneurysmal. IVC is patent. Right kidney is without hydronephrosis. There is no ascites. IMPRESSION: Status post cholecystectomy. There is a calcific density in the gallbladder fossa corresponding with a CT abnormality which may represent residual gallstone at the gallbladder bed. This does have a small amount of surrounding fluid present as well. No bile duct dilatation or other abnormality is detected. Dictated by: Dictated on workstation # [id number] Dict: 12/08/21 1550 Trans: 12/08/21 1609 [id number] [id number] Interpreted by: PATRICIA BAGLEY MD Electronically signed by: PATRICIA BAGLEY MD 12/08/21 1608 Departure Communication (Admissions) Time/Spoke to Admitting Phy: 15:52 Dr. Sutherland Impression Primary Impression: Hypertensive urgency Additional Impressions: Epigastric pain Atypical chest pain Hypoxia Abnormal abdominal ultrasound Disposition: ADMITTED INPATIENT Condition: Improved Admissions Decision to Admit Reason: Admit from ER (General) Decision to Admit/Date: Dec 08, 2021 Time/Decision to Admit Time: 15:52 Departure-Patient Inst. Referrals: TIM OAKES MD (PCP/Family) Primary Care Physician Copy Copies To 1: TIM OAKES MD, JOSHUA T MD Dec 08, 2021 11:02
[2021-12-08] MEDS ORDERED: PANTOPRAZOLE 40 MG (PROTONIX) VIAL IV ONE (11:15)
[2021-12-08] MEDS ORDERED: HOLD METFORMIN - RECEIVED CONTRAST 20 ML VIAL IV SCH (13:45)
[2021-12-08] MEDS ORDERED: IOHEXOL 350 MG/ML 100 ML (OMNIPAQUE 350) VIAL IV ONE (13:45)
[2021-12-08] MEDS ORDERED: fentaNYL INJ 100 MCG/2 ML AMP IVP ONE (13:45)
[2021-12-08] MEDS ORDERED: NS 100 ML (IVPB) BAG IV ONE (13:45)
--- NOTE | 2021-12-08 14:45 | Diagnostic Imaging Report ---
INDICATION: Chest and abdomen pain, HTN. EXAMINATION: CTA chest, abdomen, and pelvis. TECHNIQUE: Thin axial sections through the chest, abdomen and pelvis are obtained following intravenous contrast bolus. Multiplanar MIP images were reconstructed and reviewed. All CT scans use one or more of the following dose optimizing techniques: Automated exposure control, MA and/or KvP adjustment based on patient size and exam type or iterative reconstruction. CT ANGIOGRAM CHEST: FINDINGS: Evaluation of the pulmonary arterial system is without evidence of thromboembolism. No filling defects are seen within central, lobar, or segmental branches. Thoracic aorta is normal in caliber. No dissection is identified. No pericardial fluid is seen. There is trace pleural fluid or pleural thickening on the right. No discrete pulmonary mass or infiltrate is seen. There is some atelectasis in the lingula. IMPRESSION: No evidence of pulmonary embolism or acute aortic disease. CT ABDOMEN AND PELVIS WITH CONTRAST: FINDINGS: No discrete liver mass is detected. The patient has had a cholecystectomy. However, there appears to be a residual stone at the gallbladder bed with some mild surrounding fluid and inflammation. There is no biliary ductal dilatation. The pancreas is unremarkable. Spleen is enlarged at 15.6 cm. No adrenal mass is identified. Kidneys are unremarkable apart from a small cortical low-attenuation lesion in the upper pole of the right kidney suggestive of a cyst. Aorta is calcified but nonaneurysmal. Bowel loops are normal in caliber. There is diverticulosis of the descending and sigmoid colon, but no evidence of acute diverticulitis. There is no free fluid or fluid collection. The bladder and uterus are unremarkable. There is a fat-containing umbilical hernia. IMPRESSION: 1. Status post cholecystectomy. There appears to be a residual stone at the gallbladder bed with minimal surrounding fluid and inflammation. 2. Splenomegaly. 3. Uncomplicated diverticulosis. 4. Fat-containing umbilical hernia. Dictated by: Dictated on workstation # [id number]
[2021-12-08] MEDS ORDERED: hydrALAZINE (APESOLINE) 20 MG/ML VIAL IV ONE ×2 (15:15→15:45)
--- NOTE | 2021-12-08 15:57 | Diagnostic Imaging Report ---
PROCEDURE: US Gallbladder. TECHNIQUE: Multiple real-time grayscale images were obtained over the right upper quadrant in various projections. INDICATION: Epigastric pain and abnormal CT scan. Correlation is made CT study earlier same day. Liver is enlarged 22 cm. Portal vein is patent and shows normal direction of flow. There is some generalized increased echogenicity liver consistent with hepatic steatosis. Gallbladder has been surgically removed. There is a shadowing echogenic structure in the gallbladder fossa correlating with a calcific density noted on CT. This does have a small amount of surrounding fluid measuring 2.9 x 1.7 x 2.1 cm. Stone measures 1.6 x 1.3 x 2.1 cm. There is no biliary ductal dilatation identified. Visualized pancreas unremarkable. Aorta is nonaneurysmal. IVC is patent. Right kidney is without hydronephrosis. There is no ascites. IMPRESSION: Status post cholecystectomy. There is a calcific density in the gallbladder fossa corresponding with a CT abnormality which may represent residual gallstone at the gallbladder bed. This does have a small amount of surrounding fluid present as well. No bile duct dilatation or other abnormality is detected. Dictated by: Dictated on workstation # [id number]
[2021-12-08 17:28] VITALS: BP 185/76
[2021-12-08] MEDS ORDERED: hydrALAZINE (APESOLINE) 20 MG/ML VIAL IV PRN ×2 (18:45)
[2021-12-08] MEDS ORDERED: ACETAMINOPHEN 500 MG TAB (TYLENOL) PO PRN (18:45)
[2021-12-08] MEDS ORDERED: fentaNYL INJ 100 MCG/2 ML AMP IVP PRN (18:45)
[2021-12-08] MEDS ORDERED: ONDANSETRON 4 MG/2 ML (SDV) Z0FRAN IVP PRN (18:45)
[2021-12-08] MEDS ORDERED: KCL 20 MEQ TAB (K-DUR) PO ONE (19:45)
[2021-12-08 20:00] VITALS: BP 176/73
[2021-12-08] MEDS: doxAzosin 1 MG (CARDURA) TAB PO SCH (20:33)
[2021-12-08] MEDS: SUCRALFATE 1 GM (CARAFATE) TAB PO SCH ×2 (20:33→20:54)
[2021-12-08] MEDS: meTOprolol TARTRATE 50 MG (LOPRESSOR) TAB PO SCH (20:33)
[2021-12-09] VITALS (8 sets, daily range): BP systolic 147–176; BP diastolic 66–78
[2021-12-09 05:03] LABS: HEMATOCRIT 32 % (35-52); HEMOGLOBIN 10.2 g/dL (11.5-16.0); MEAN CORPUSCULAR HEMOGLOBIN 29 pg (25-34); MEAN CORPUSCULAR HGB CONC 32 g/dL (32-36); MEAN CORPUSCULAR VOLUME 92 fL (80-99); PLATELET COUNT 151 10^3/uL (130-400); WHITE BLOOD COUNT 11.3 10^3/uL (4.3-11.0)
[2021-12-09 05:24] LABS: CALCIUM 8.9 MG/DL (8.5-10.1); CREATININE SERUM 0.79 MG/DL (0.60-1.30); POTASSIUM 3.4 MMOL/L (3.6-5.0)
[2021-12-09] MEDS: SUCRALFATE 1 GM (CARAFATE) TAB PO SCH ×4 (05:50→15:56)
--- NOTE | 2021-12-09 08:45 | History & Physical-Hospitalist ---
History of Present Illness HPI/Chief Complaint Patient is a 66-year-old female with past medical history of hypertension who presented to the emergency department due to chest pain. She was seen in the emergency department the day before with similar symptoms and was treated with Gaviscon which improved her symptoms. She went home and was doing well but on the evening of December 07 around 7 PM her chest pain returned. She also had some nausea and dry heaving. She took the medicine that she was prescribed from the emergency department, Carafate, which did not help her symptoms. Yesterday morning she called her primary care doctor to try to be seen that day but could not get until the afternoon. She states her pain was too severe to wait so decided to seek evaluation again in the emergency department. She was found to be quite hypertensive with a blood pressure of 225/107. She was given 10 mg of IV hydralazine along with fentanyl and Carafate for pain. Her blood pressure improved slightly but was still over 180 so she was admitted for hypertensive emergency. This morning she reports feeling better and has had no further chest pain. Source: patient Date Seen 12/09/21 Time Seen by a Provider: 08:40 Attending Physician Louise Oakes MD PCP Admitting Physician: Ricky Sutherland MD Attending Physician: Ricky Sutherland MD Referring Physician Date of Admission Dec 08, 2021 at 16:40 Home Medications & Allergies Home Medications Reviewed patient Home Medication Reconciliation performed by pharmacy medication reconciliations nuclear fuel enrichment technician and/or nursing. Patients Allergies have been reviewed. Allergies Allergies Coded Allergies No Known Drug Allergies (Unverified09/15/15) Past Sefgwon-Rdyyos-Hfibpk Hx Patient Social History Marrital Status: Tobacco Use?: No Smoking Status: Never a Smoker Smokeless Tobacco Frequency: Never a User Use of E-Cig and/or Vaping dev: No Use of E-Cig and/or Vaping Russ: Never a User Substance use?: No Alcohol Use?: No Pt feels they are or have been: No Immunizations Up To Date First/Initial COVID19 Vaccinat: 2020 Second COVID19 Vaccination Corky: 2020 Tetanus Booster (TDap): Unknown Hepatitis A: Yes Hepatitis B: Yes Date of Pneumonia Vaccine: July 17, 2015 Seasonal Allergies Seasonal Allergies: No Current Status status: No status: No Advance Directives: Yes Advance Directive Location: Family to bring in copy Communicates: Verbally Primary Language: Pashto Preferred Spoken Language: Pashto Is interpretation needed?: No Implanted or Applied Medical D: None Past Medical History Surgeries: Breast (Biopsy), Section, Eye Surgery (Cataracts), Gallbladder, Joint Replacement, Orthopedic Hypertension Arthritis, Gout Depression Blood Disorders: No Family Medical History Reviewed Nursing Family Hx No Pertinent Family Hx Review of Systems Constitutional: No chills, No fever EENTM: no symptoms reported Respiratory: No cough, No dyspnea on exertion, No short of breath Cardiovascular: chest pain; No edema, No Hx of Intervention, No palpitations Gastrointestinal: abdominal pain, nausea; No vomiting Genitourinary: no symptoms reported Musculoskeletal: no symptoms reported Skin: no symptoms reported Psychiatric/Neurological: No Symptoms Reported Physical Exam Physical Exam Vital Signs Vital Signs - First Documented 12/08/21 12/08/21 08:18 18:26 Temp 36.6 Pulse 77 Resp 18 B/P (MAP) 225/107 (146) Pulse Ox 94 O2 Delivery Room Air O2 Flow Rate 2.00 Capillary Refill : Less Than 3 Seconds Height, Weight, BMI Height: 5'6" Weight: 300lbs. 0.0oz. [id number]; 47.09 BMI Method:Stated General Appearance: No Apparent Distress, WD/WN Neck: Normal Inspection, Supple; No JVD Respiratory: Lungs Clear, No Respiratory Distress Cardiovascular: Regular Rate, Rhythm, No JVD, Systolic Murmur Gastrointestinal: Normal Bowel Sounds, Non Tender, Soft Extremity: Normal Capillary Refill, No Calf Tenderness, No Pedal Edema Neurologic/Psychiatric: Alert, Oriented x3, Normal Mood/Affect Results Results/Procedures Labs Laboratory Tests 12/09/21 04:54 Patient resulted labs reviewed. Imaging: Reviewed Imaging Report Imaging [facility], [place] NAME: DUSTIN MADRIGAL [facility] REC#: [id number] PT STATUS: REG ER : 1955 PHYSICIAN: ADELA TOURE MD ADMIT DATE: 12/08/21/ER Signed Date of Exam:12/08/21 CHEST 1 VIEW, AP/PA ONLY EXAMINATION: Chest 1 view HISTORY: Chest pain COMPARISON: 12/06/2021 FINDINGS: Heart size and pulmonary vasculature are stable. The lungs are clear without consolidation, pleural effusion, or pneumothorax. The osseous structures are intact. IMPRESSION: 1. Stable cardiomegaly without other acute radiographic abnormality in the chest. Dictated by: Dictated on workstation # [id number] Dict: 12/08/21914 Trans: 12/08/21926 CVB [id number] Interpreted by: ELENA LAZO DO Electronically signed by: ELENA LAZO DO 12/08/21926 [facility] [place] NAME: DUSTIN MADRIGAL [facility] REC#: [id number] PT STATUS: REG ER : 1955 PHYSICIAN: ADELA TOURE MD ADMIT DATE: 12/08/21/ER Signed Date of Exam:12/08/21 CT AARON CHEST/NOANG ABD-PELV W INDICATION: Chest and abdomen pain, HTN. EXAMINATION: CTA chest, abdomen, and pelvis. TECHNIQUE: Thin axial sections through the chest, abdomen and pelvis are obtained following intravenous contrast bolus. Multiplanar MIP images were reconstructed and reviewed. All CT scans use one or more of the following dose optimizing techniques: Automated exposure control, MA and/or KvP adjustment based on patient size and exam type or iterative reconstruction. CT ANGIOGRAM CHEST: FINDINGS: Evaluation of the pulmonary arterial system is without evidence of thromboembolism. No filling defects are seen within central, lobar, or segmental branches. Thoracic aorta is normal in caliber. No dissection is identified. No pericardial fluid is seen. There is trace pleural fluid or pleural thickening on the right. No discrete pulmonary mass or infiltrate is seen. There is some atelectasis in the lingula. IMPRESSION: No evidence of pulmonary embolism or acute aortic disease. CT ABDOMEN AND PELVIS WITH CONTRAST: FINDINGS: No discrete liver mass is detected. The patient has had a cholecystectomy. However, there appears to be a residual stone at the gallbladder bed with some mild surrounding fluid and inflammation. There is no biliary ductal dilatation. The pancreas is unremarkable. Spleen is enlarged at 15.6 cm. No adrenal mass is identified. Kidneys are unremarkable apart from a small cortical low-attenuation lesion in the upper pole of the right kidney suggestive of a cyst. Aorta is calcified but nonaneurysmal. Bowel loops are normal in caliber. There is diverticulosis of the descending and sigmoid colon, but no evidence of acute diverticulitis. There is no free fluid or fluid collection. The bladder and uterus are unremarkable. There is a fat-containing umbilical hernia. IMPRESSION: 1. Status post cholecystectomy. There appears to be a residual stone at the gallbladder bed with minimal surrounding fluid and inflammation. 2. Splenomegaly. 3. Uncomplicated diverticulosis. 4. Fat-containing umbilical hernia. Dictated by: Dictated on workstation # [id number] Dict: 12/08/21 1435 Trans: 12/08/21 1503 [id number] Interpreted by: PATRICIA BAGLEY MD Electronically signed by: PATRICIA BAGLEY MD 12/08/21 1503 [facility] [place] NAME: DUSTIN MADRIGAL [facility] REC#: [id number] PT STATUS: REG ER : 1955 PHYSICIAN: ADELA TOURE MD ADMIT DATE: 12/08/21/ER Signed Date of Exam:12/08/21 US GALLBLADDER [id number] PROCEDURE: US Gallbladder. TECHNIQUE: Multiple real-time grayscale images were obtained over the right upper quadrant in various projections. INDICATION: Epigastric pain and abnormal CT scan. Correlation is made CT study earlier same day. Liver is enlarged 22 cm. Portal vein is patent and shows normal direction of flow. There is some generalized increased echogenicity liver consistent with hepatic steatosis. Gallbladder has been surgically removed. There is a shadowing echogenic structure in the gallbladder fossa correlating with a calcific density noted on CT. This does have a small amount of surrounding fluid measuring 2.9 x 1.7 x 2.1 cm. Stone measures 1.6 x 1.3 x 2.1 cm. There is no biliary ductal dilatation identified. Visualized pancreas unremarkable. Aorta is nonaneurysmal. IVC is patent. Right kidney is without hydronephrosis. There is no ascites. IMPRESSION: Status post cholecystectomy. There is a calcific density in the gallbladder fossa corresponding with a CT abnormality which may represent residual gallstone at the gallbladder bed. This does have a small amount of surrounding fluid present as well. No bile duct dilatation or other abnormality is detected. Dictated by: Dictated on workstation # [id number] Dict: 12/08/21 1550 Trans: 12/08/21 1609 CVB [id number] Interpreted by: PATRICIA BAGLEY MD Electronically signed by: PATRICIA BAGLEY MD 12/08/21 1604 Assessment/Plan Admission Diagnosis HTN Emergency Admission Status: Observation Assessment and Plan HTN Emergency Chest pain Chest pain improved with treatment of painand BP Trend Cardiology consulted, appreciate recs Continue PPI Hydralazine prn Depression COntinue sertraline hyperglycemia fasting BS 155 Trend No history of DM Gout Continue allopurinol Gallstone s/p cholecystectomy with ERCP in May of this year Follows with Dr Mason Will need outpatient follow up Diagnosis/Problems Diagnosis/Problems (1) Gall stone (2) Hypertensive emergency (3) Hyperglycemia (4) Hypertension Status: Acute Qualifiers: Hypertension type: primary hypertension Qualified Codes: I10 - Essential (primary) hypertension (5) Gastritis Status: Acute (6) Atypical chest pain Status: Acute (7) Morbid obesity Clinical Quality Measures AMI/AHF: ASA po Prior to arrival: RICKY Saba MD Dec 09, 2021 08:45
[2021-12-09] MEDS: doxAzosin 1 MG (CARDURA) TAB PO SCH (08:52)
[2021-12-09] MEDS: PANTOPRAZOLE 40 MG (PROTONIX) TAB PO SCH (08:53)
[2021-12-09] MEDS: meTOprolol TARTRATE 50 MG (LOPRESSOR) TAB PO SCH (08:53)
[2021-12-09] MEDS ORDERED: LOSARTAN 100 MG (COZAAR) TABLET PO SCH (09:00)
--- NOTE | 2021-12-09 09:55 | Consultation-Cardiology ---
HPI-Cardiology Cardiology Consultation: Date of Consultation 12/09/21 Date of Admission 12/08/21 Attending Physician Louise Oakes MD Admitting Physician Admitting Physician: Jennifer Sutherland MD Attending Physician: Jennifer Sutherland MD Consulting Physician KENA CHRISTENSEN JR, MD HPI: Time Seen by a Provider: 10:14 Chief Complaint: REASON FOR CONSULTATION: Chest pain. I had the pleasure of seeing Evita on the cardiac stepdown unit at [facility] in [place], [place] today. She has no known history of coronary artery disease. Earlier this year she had an ERCP followed by a cholecystectomy in [place], [place]. Her symptoms leading up to that were substernal chest discomfort with radiation to her epigastrium. Following her gallbladder procedures, the symptoms resolved. On Saturday she woke up with recurrent midsternal chest tightness with radiation to her epigastrium. She had some nausea but denied any vomiting. She became concerned and presented to the emergency room earlier this week for further evaluation. She had an unremarkable ECG and negative troponin levels and was diagnosed with possible gastroesophageal reflux disease and discharged home with Carafate. However, on she continued to have intermittent chest discomfort radiating to her epigastrium. There is a evening she had some dry heaves. The discomfort persisted throughout the night. She tried taking some liquid antacid but this was not helping with her symptoms. She again became concerned that this could be cardiac chest pain and presented to the emergency room yesterday. She was admitted for further evaluation. Overnight, her symptoms seem to have subsided. She has chronic dyspnea on exertion which she relates is due to sedentary lifestyle and her obesity. This has been unchanged. She denies paroxysmal nocturnal dyspnea or orthopnea. When she was having the nausea and dry heaves, she had some dizziness but denies any syncope. She has chronic, intermittent ankle edema which has been unchanged. Because of the chest pain, a cardiology consultation was requested. Certain portions of this document may have been dictated utilizing voice recognition technology. Inherent to this technology, typographical and grammatical errors may exist. As much as I am diligent to identify and correct these mistakes, some errors may remain in the document. Review of Systems-Cardiology Review of Systems Other comments Review of 10 organ systems is as per the history of present illness, otherwise negative. GOV-Qnjyvq-Knqtps Hx Patient Social History Marrital Status: Smoking Status: Never a Smoker Have you traveled recently?: No Alcohol Use?: No Pt feels they are or have been: No Immunizations Up To Date Date of Pneumonia Vaccine: July 17, 2015 Past Medical History PMH As described under Assessment. Family Medical History Family Medical History: She is adopted and does not know her family. Allergies and Home Medications Allergies Coded Allergies: No Known Drug Allergies (Unverified , 09/15/15) Patient Home Medication List Home Medication List Reviewed: Yes Allopurinol (Allopurinol) 100 Mg Tablet, 100 MG PO DAILY, (Reported) Entered as Reported by: CALIXTO VOGEL on 12/07/19 09 Last Action: Reviewed Doxazosin Mesylate (Doxazosin Mesylate) 2 Mg Tablet, 3 MG PO BID Prescribed by: LOLA VALADEZ on 12/09/21 1005 Last Action: Reviewed Metoprolol Tartrate (Metoprolol Tartrate) 100 Mg Tablet, 100 MG PO BID, (Reported) Entered as Reported by: CALIXTO VOGEL on 09/15/15924 Last Action: Reviewed Potassium Chloride (Potassium Chloride) 10 Meq Tab.er.prt, 10 MEQ PO BID, (Reported) Entered as Reported by: CALIXTO VOGEL on 09/15/15924 Last Action: Reviewed Sertraline HCl (Sertraline HCl) 100 Mg Tablet, 100 MG PO DAILY, (Reported) Entered as Reported by: CALIXTO VOGEL on 09/15/15924 Last Action: Reviewed Telmisartan/Hydrochlorothiazid (Telmisartan-Hctz 80-25 mg Tab) 1 Each Tablet, 1 EACH PO DAILY, (Reported) Entered as Reported by: CALIXTO VOGEL on 09/15/15924 Last Action: Reviewed Discontinued Medications Sucralfate (Sucralfate) 1 Gram/10 Ml Oral.susp, 1 GM PO TIDWM Discontinued Reason: No Longer Taking Prescribed by: Edwin Whitt on 12/06/21 1326 Last Action: Discontinued Exam Vital Signs Vital Signs Date Time Temp Pulse Resp B/P (MAP) Pulse Ox O2 Delivery O2 Flow Rate FiO2 12/09/21 07:37 36.1 70 18 170/74 (106) 95 Nasal Cannula 2.00 Physical Exam General: Alert. No acute distress. Well nourished and appears stated age. She is obese. Eye: Extraocular movements are intact. Conjunctivae are clear. There are no xanthelasma. HENT: Normocephalic. Atraumatic. Carotid pulsations 2/2 without bruits. Neck: Jugular venous pressure does not appear elevated. No thyromegaly appreciated. Respiratory: Lungs are clear to auscultation. Respirations are non-labored. Breath sounds are equal. Symmetrical chest wall expansion. Cardiovascular: Normal rate. Regular rhythm. 2/6 systolic ejection murmur. No gallop. Point of maximal impulse is not appear displaced. Good pulses equal in all extremities. No edema. Gastrointestinal: Soft. Normal bowel sounds. Skin: Skin turgor is normal. There is no pallor. Musculoskeletal: No kyphosis or scoliosis appreciated. Neurologic: Alert and oriented to person, place, time. Cranial nerves 3-12 appear grossly intact. The patient has good motor tone strength in the upper and lower extremities bilaterally. Psychiatric: Cooperative. Appropriate mood & affect. Labs Laboratory Tests Test 12/09/21 04:54 12/09/21 05:45 Range/Units White Blood Count 11.3 H 4.3-11.0 10^3/uL Red Blood Count 3.47 L 3.80-5.11 10^6/uL Hemoglobin 10.2 L 11.5-16.0 g/dL Hematocrit 32 L 35-52 % Mean Corpuscular Volume 92 80-99 fL Mean Corpuscular Hemoglobin 29 25-34 pg Mean Corpuscular Hemoglobin Concent 32 32-36 g/dL Red Cell Distribution Width 15.1 H 10.0-14.5 % Platelet Count 151 130-400 10^3/uL Mean Platelet Volume 11.0 9.0-12.2 fL Sodium Level 139 135-145 MMOL/L Potassium Level 3.4 L 3.6-5.0 MMOL/L Chloride Level 100 98-107 MMOL/L Carbon Dioxide Level 27 21-32 MMOL/L Anion Gap 12 5-14 MMOL/L Blood Urea Nitrogen 15 7-18 MG/DL Creatinine 0.79 0.60-1.30 MG/DL Estimat Glomerular Filtration Rate 82 BUN/Creatinine Ratio 19 Glucose Level 155 H 70-105 MG/DL Calcium Level 8.9 8.5-10.1 MG/DL Triglycerides Level 79 <150 MG/DL Cholesterol Level 140 < 200 MG/DL LDL Cholesterol Direct 78 1-129 MG/DL VLDL Cholesterol 16 5-40 MG/DL HDL Cholesterol 49 40-60 MG/DL ECG Impression ECG Comment Electrocardiogram from the emergency room on 12/08 shows sinus rhythm with n onspecific ST changes. The QT is reported to be prolonged but the computer miscalculated. Her electrocardiogram from earlier in the week also showed sinus rhythm with nonspecific ST changes. Diagnosis/Problems Diagnosis/Problems (1) Chest pain Assessment & Plan: Exact etiology unclear. She had negative troponin levels and only nonspecific changes on her electrocardiogram. Her symptoms are almost identical to the symptoms she had prior to her ERCP and cholecystectomy. She does have a retained gallstone. I suspect her symptoms could be due to this gallstone and/or possibly esophageal reflux disease. I concur with continuing Carafate and adding a proton pump inhibitor. From a cardiac standpoint, she can be discharged to home. I have ordered a nuclear stress test and echocardiogram to be done as an outpatient through my office EHR. If for some reason she is still here in the hospital on Saturday, then I could do the testing at that time. However, this testing is elective and she does not necessarily need to stay in the hospital unless she has recurrent chest discomfort that we cannot get under control with medication. I also recommend she start low strength aspirin until we complete her cardiac evaluation. (2) Abnormal electrocardiogram Assessment & Plan: Her electrocardiogram shows nonspecific ST changes. In light of the chest discomfort, I recommended an outpatient stress test as noted above. (3) Hypertensive urgency Status: Acute Assessment & Plan: Her blood pressure was markedly elevated at the time of admission. The hospitalist has increased her dose of doxazosin. She should also continue her other antihypertensive medications. (4) Heart murmur Assessment & Plan: She has a heart murmur that sounds consistent with aortic stenosis. I have ordered an outpatient echocardiogram. There is no urgent need to perform this test on the weekend. (5) Cholelithiasis Assessment & Plan: As above, I would question whether or not this retained gallstone could be causing her symptoms. She plans to follow-up with her senior genetic counselor in [place] after discharge. She may need another ERCP. (6) Morbid obesity Assessment & Plan: She needs to work on weight loss. KENA CHRISTENSEN JR, MD Dec 09, 2021 09:54
[2021-12-09] MEDS ORDERED: DOXA2TAB2 PO (10:05)
[2021-12-09] MEDS: ASPIRIN E.C. 81 MG (ECOTRIN) TAB PO SCH (10:23)
[2021-12-09] MEDS ORDERED: SERTRALINE 100 MG (ZOLOFT) TAB PO SCH (12:00)
[2021-12-09] MEDS ORDERED: PATIENT MAY USE OWN MEDS, ALL MC SCH (13:30)
[2021-12-09] MEDS ORDERED: SUCR1TAB PO (15:59)
[2021-12-09] MEDS: SUCRALFATE 1GM TABLET PO SCH ×2 (17:01→20:29)
[2021-12-09] MEDS: DOXAZOSIN 2MG TABLET PO SCH (20:27)
[2021-12-09] MEDS: POTASSIUM CHLORIDE 10 MEQ PO SCH (20:28)
[2021-12-09] MEDS: METOPROLOL TARTRATE 100MG TABLET PO SCH (20:29)
[2021-12-09] MEDS ORDERED: KCL 10 MEQ TAB (MICRO K) PO SCH (21:00)
[2021-12-10 04:00] VITALS: BP 166/74
[2021-12-10] MEDS: SUCRALFATE 1GM TABLET PO SCH ×4 (06:30→20:13)
[2021-12-10 07:45] VITALS: BP 168/76
[2021-12-10] MEDS: PANTOPRAZOLE 40 MG (PROTONIX) TAB PO SCH (08:41)
[2021-12-10] MEDS: ASPIRIN E.C. 81 MG (ECOTRIN) TAB PO SCH (08:41)
[2021-12-10] MEDS: DOXAZOSIN 2MG TABLET PO SCH (08:43)
[2021-12-10] MEDS: HCTZ PO SCH (08:44)
[2021-12-10] MEDS: TELMISARTAN PO SCH (08:44)
[2021-12-10] MEDS: POTASSIUM CHLORIDE 10 MEQ PO SCH ×2 (08:45→20:13)
[2021-12-10] MEDS: METOPROLOL TARTRATE 100MG TABLET PO SCH ×2 (08:47→20:13)
[2021-12-10] MEDS: SERTRALINE 100MG TABLET PO SCH (08:47)
[2021-12-10] MEDS: ALLOPURINOL 100MG TABLET PO SCH (08:48)
[2021-12-10] MEDS ORDERED: ALLOPURINOL 100 MG (ZYLOPRIM) TAB PO SCH (09:00)
[2021-12-10] MEDS ORDERED: ENOXAPARIN 40 MG/0.4 ML (LOVENOX) SYR SQ SCH (09:45)
--- NOTE | 2021-12-10 09:46 | Progress Note - Hospitalist ---
Subjective HPI/CC On Admission Date Seen by Provider: Dec 10, 2021 Patient is a 66-year-old female with past medical history of hypertension who presented to the emergency department due to chest pain. She was seen in the emergency department the day before with similar symptoms and was treated with Gaviscon which improved her symptoms. She went home and was doing well but on the evening of December 07 around 7 PM her chest pain returned. She also had some nausea and dry heaving. She took the medicine that she was prescribed from the emergency department, Carafate, which did not help her symptoms. Yesterday morning she called her primary care doctor to try to be seen that day but could not get until the afternoon. She states her pain was too severe to wait so decided to seek evaluation again in the emergency department. She was found to be quite hypertensive with a blood pressure of 225/107. She was given 10 mg of IV hydralazine along with fentanyl and Carafate for pain. Her blood pressure improved slightly but was still over 180 so she was admitted for hypertensive emergency. This morning she reports feeling better and has had no further chest pain. Subjective/Events-last exam Pt reports doign well. No complaints. RN has weaned off oxygen but with talking to me dropped to high 80s. I placed her back on oxygen. Discussed oxygen requirement and fever yesterday and plan to observe one more night in the hospital. Objective Exam Vital Signs Vital Signs Date Time Temp Pulse Resp B/P (MAP) Pulse Ox O2 Delivery O2 Flow Rate FiO2 12/10/21 09:20 88 Nasal Cannula 1.00 12/10/21 07:45 37.0 70 19 168/76 (106) Capillary Refill : Less Than 3 Seconds General Appearance: No Apparent Distress, WD/WN Respiratory: Lungs Clear, No Respiratory Distress Cardiovascular: Regular Rate, Rhythm, Systolic Murmur Gastrointestinal: Normal Bowel Sounds, Soft Extremity: Normal Capillary Refill, No Calf Tenderness, No Pedal Edema Neurologic/Psychiatric: Alert, Oriented x3 Skin: Normal Color, Warm/Dry Results/Procedures Lab Patient resulted labs reviewed. Imaging: Reviewed Imaging Report Assessment/Plan Assessment and Plan Assess & Plan/Chief Complaint HTN Emergency Chest pain Chest pain improved with treatment of paiand BP Cardiology consulted, appreciate recs Continue PPI Hydralazine prn Pain resolved echo tomorrow Hypoxia Likely has DEDE Will get nocturnal oximetry tonight ?obesity hypoventilation syndrome Will need sleep study at home Depression Continue sertraline hyperglycemia fasting BS 155 Trend No history of DM Gout Continue allopurinol Gallstone s/p cholecystectomy with ERCP in May of this year Follows with Dr Mason Will need outpatient follow up Did have fever yesterday but resolved, trend DVT ppx: Lovenox Diagnosis/Problems Diagnosis/Problems (1) Gall stone (2) Hypertensive emergency (3) Hyperglycemia (4) Hypertension Status: Acute Qualifiers: Hypertension type: primary hypertension Qualified Codes: I10 - Essential (primary) hypertension (5) Gastritis Status: Acute (6) Atypical chest pain Status: Acute (7) Morbid obesity Clinical Quality Measures AMI/AHF: ASA po Prior to arrival: RICKY Saba MD Dec 10, 2021 09:46
--- NOTE | 2021-12-10 09:50 | Cardiology Progress Note ---
Progress Note-Cardiology Events since last exam Date Seen by Provider: Dec 10, 2021 Time Seen by Provider: 09:48 Events since last exam I am following her due to chest pain and hypertension. She denies any further chest discomfort this morning. She denies dyspnea at rest but has ongoing dyspnea on exertion which she has had for quite some time. She denies palpitations or syncope. She has mild ankle edema. This morning she tells me that she has been taking her doxazosin sublingual for quite some time. This is the way it was prescribed. Certain portions of this document may have been dictated utilizing voice recognition technology. Inherent to this technology, typographical and grammatical errors may exist. As much as I am diligent to identify and correct these mistakes, some errors may remain in the document. Vitals Last set of Vitals Signs Vital Signs 12/10/21 12/10/21 07:45 09:20 Temp 37.0 Pulse 70 Resp 19 B/P (MAP) 168/76 (106) Pulse Ox 88 O2 Delivery Nasal Cannula O2 Flow Rate 1.00 Exam Vital Signs Vital Signs Date Time Temp Pulse Resp B/P (MAP) Pulse Ox O2 Delivery O2 Flow Rate FiO2 12/10/21 09:20 88 Nasal Cannula 1.00 12/10/21 07:45 37.0 70 19 168/76 (106) Physical Exam General: Alert. No acute distress. She is morbidly obese. She is wearing oxygen by nasal cannula. Eye: No xanthelasma. HENT: Normocephalic. Neck: Jugular venous pressure does not appear elevated. Respiratory: Lungs are clear to auscultation. Respirations are non-labored. Breath sounds are equal. Symmetrical chest wall expansion. Cardiovascular: Normal rate. Regular rhythm. Distant S1/S2. 2/6 systolic ejection murmur. No gallop. No edema. Gastrointestinal: Soft. Normal bowel sounds. Skin: Warm. Dry. Neurologic: Alert and oriented to person, place, time. Cranial nerves 3-11 grossly intact. Psychiatric: Cooperative. Appropriate mood & affect. Diagnosis/Problems Diagnosis/Problems (1) Chest pain Assessment & Plan: Exact etiology unclear. She had negative troponin levels and only nonspecific changes on her electrocardiogram. Her symptoms are almost identical to the symptoms she had prior to her ERCP and cholecystectomy. She does have a retained gallstone. I suspect her symptoms could be due to this gallstone and/or possibly esophageal reflux disease. I concur with continuing Carafate and adding a proton pump inhibitor. She had a slight fever yesterday and because of this, she will be staying 1 more night in the hospital. As such, I will have her undergo an echocardiogram and pharmacologic nuclear stress test tomorrow. I also recommend she start low strength aspirin until we complete her cardiac evaluation. (2) Abnormal electrocardiogram Assessment & Plan: Her electrocardiogram shows nonspecific ST changes. In light of the chest discomfort, I recommended a stress test. Since she will be here tomorrow, I have gone ahead and ordered the test for tomorrow. I have alerted nuclear medicine. I told her not to drink any caffeine after lunch today and she will need to be n.p.o. after midnight tonight. (3) Hypertensive urgency Status: Acute Assessment & Plan: Her blood pressure was markedly elevated at the time of admission. I had thought the patient's dose of doxazosin had been increased but this is actually the same dose she was taking at home. She was also taking the doxazosin sublingual which is not the normal route of administration. Her blood pressure remains elevated. I will increase the doxazosin to 4 mg orally twice daily. I instructed her to stop taking this medication sublingually. She is on the maximum dose of metoprolol, telmisartan, and hydrochlorothiazide. Given that she is on 4 antihypertensive medications, this raises a concern for secondary causes of hypertension. I will have her undergo a renal arterial ultrasound tomorrow. We may also need to consider screening for pheochromocytoma and hyperaldosteronism. (4) Heart murmur Assessment & Plan: She has a heart murmur that sounds consistent with aortic stenosis versus aortic sclerosis. Since she will be here in the hospital tomorrow, I have ordered an echocardiogram for the morning. (5) Cholelithiasis Assessment & Plan: As above, I would question whether or not this retained gallstone could be causing her symptoms. She plans to follow-up with her warehouse loader in [place] after discharge. She may need another ERCP. (6) Morbid obesity Assessment & Plan: She needs to work on weight loss. KENA CHRISTENSEN JR, MD Dec 10, 2021 09:50
[2021-12-10] MEDS ORDERED: REGADENOSON 0.4 MG/5 ML SYR (LEXISCAN) IV ONE (10:00)
[2021-12-10] MEDS ORDERED: doxAzosin 4 MG (CARDURA) TAB PO NR (10:00)
[2021-12-10] MEDS: ENOXAPARIN 40 MG/0.4 ML (LOVENOX) SYR SQ SCH ×2 (10:17→21:29)
[2021-12-10 11:09] VITALS: BP 167/70
[2021-12-10 16:17] VITALS: BP 145/81
[2021-12-10] MEDS: doxAzosin 4 MG (CARDURA) TAB PO SCH (20:12)
[2021-12-10 20:14] VITALS: BP 161/72
[2021-12-10 23:15] VITALS: BP 159/74
[2021-12-11 04:00] VITALS: BP 162/75
[2021-12-11 05:45] LABS: HEMATOCRIT 32 % (35-52); HEMOGLOBIN 10.1 g/dL (11.5-16.0); MEAN CORPUSCULAR HEMOGLOBIN 29 pg (25-34); MEAN CORPUSCULAR HGB CONC 31 g/dL (32-36); MEAN CORPUSCULAR VOLUME 93 fL (80-99); MEAN PLATELET VOLUME 11.5 fL (9.0-12.2); PLATELET COUNT 173 10^3/uL (130-400); WHITE BLOOD COUNT 9.6 10^3/uL (4.3-11.0)
[2021-12-11] MEDS: SUCRALFATE 1GM TABLET PO SCH ×3 (06:00→16:45)
[2021-12-11 06:11] LABS: CALCIUM 8.7 MG/DL (8.5-10.1); CREATININE SERUM 0.73 MG/DL (0.60-1.30); POTASSIUM 3.4 MMOL/L (3.6-5.0)
[2021-12-11 07:28] VITALS: BP 160/68
[2021-12-11] MEDS: ASPIRIN E.C. 81 MG (ECOTRIN) TAB PO SCH (08:57)
[2021-12-11] MEDS: PANTOPRAZOLE 40 MG (PROTONIX) TAB PO SCH (08:57)
[2021-12-11] MEDS: SERTRALINE 100MG TABLET PO SCH (08:58)
[2021-12-11] MEDS: POTASSIUM CHLORIDE 10 MEQ PO SCH (08:59)
[2021-12-11] MEDS: ALLOPURINOL 100MG TABLET PO SCH (08:59)
[2021-12-11] MEDS: doxAzosin 4 MG (CARDURA) TAB PO SCH (09:01)
[2021-12-11] MEDS: HCTZ PO SCH (09:02)
[2021-12-11] MEDS: METOPROLOL TARTRATE 100MG TABLET PO SCH (09:02)
[2021-12-11] MEDS: TELMISARTAN PO SCH (09:02)
[2021-12-11] MEDS: ENOXAPARIN 40 MG/0.4 ML (LOVENOX) SYR SQ SCH (10:20)
[2021-12-11] MEDS ORDERED: DOXA2TAB2 SL (10:49)
[2021-12-11] MEDS ORDERED: POTA10TA PO (10:49)
[2021-12-11] MEDS ORDERED: CATHETER FLUSH 10 ML SYR IVP PRN (11:00)
[2021-12-11] MEDS ORDERED: REGADENOSON 0.4 MG/5 ML SYR (LEXISCAN) IV ONE (11:54)
[2021-12-11 12:00] VITALS: BP 173/74
--- NOTE | 2021-12-11 15:07 | Cardiology Progress Note ---
Progress Note-Cardiology Events since last exam Date Seen by Provider: Dec 11, 2021 Time Seen by Provider: 16:21 Events since last exam I am following her due to chest pain. Her chest discomfort has resolved. She denies dyspnea at rest. She denies palpitations or syncope. She has minimal bilateral ankle edema. She would like to go home. Certain portions of this document may have been dictated utilizing voice recognition technology. Inherent to this technology, typographical and grammatical errors may exist. As much as I am diligent to identify and correct these mistakes, some errors may remain in the document. Vitals Last set of Vitals Signs Vital Signs 12/11/21 12/11/21 08:50 15:23 Temp 36.6 Pulse 80 Resp 18 B/P (MAP) 155/63 (93) Pulse Ox 92 O2 Delivery Room Air O2 Flow Rate 1.00 Labs Labs Laboratory Tests 12/11/21 05:23 Exam Vital Signs Vital Signs Date Time Temp Pulse Resp B/P (MAP) Pulse Ox O2 Delivery O2 Flow Rate FiO2 12/11/21 15:23 36.6 80 18 155/63 (93) 92 Room Air 12/11/21 08:50 1.00 Physical Exam General: Alert. No acute distress. She is morbidly obese. Eye: No xanthelasma. HENT: Normocephalic. Neck: Jugular venous pressure does not appear elevated. Respiratory: Lungs are clear to auscultation. Respirations are non-labored. Breath sounds are equal. Symmetrical chest wall expansion. Cardiovascular: Normal rate. Regular rhythm. 2/6 systolic ejection murmur. No gallop. Trace bilateral pretibial edema. Gastrointestinal: Soft. Normal bowel sounds. Skin: Warm. Dry. Neurologic: Alert and oriented to person, place, time. Cranial nerves 3-11 grossly intact. Psychiatric: Cooperative. Appropriate mood & affect. Labs Laboratory Tests Test 12/11/21 05:23 Range/Units White Blood Count 9.6 4.3-11.0 10^3/uL Red Blood Count 3.47 L 3.80-5.11 10^6/uL Hemoglobin 10.1 L 11.5-16.0 g/dL Hematocrit 32 L 35-52 % Mean Corpuscular Volume 93 80-99 fL Mean Corpuscular Hemoglobin 29 25-34 pg Mean Corpuscular Hemoglobin Concent 31 L 32-36 g/dL Red Cell Distribution Width 14.8 H 10.0-14.5 % Platelet Count 173 130-400 10^3/uL Mean Platelet Volume 11.5 9.0-12.2 fL Sodium Level 141 135-145 MMOL/L Potassium Level 3.4 L 3.6-5.0 MMOL/L Chloride Level 102 98-107 MMOL/L Carbon Dioxide Level 27 21-32 MMOL/L Anion Gap 12 5-14 MMOL/L Blood Urea Nitrogen 16 7-18 MG/DL Creatinine 0.73 0.60-1.30 MG/DL Estimat Glomerular Filtration Rate 90 BUN/Creatinine Ratio 22 Glucose Level 136 H 70-105 MG/DL Calcium Level 8.7 8.5-10.1 MG/DL Radiology REGADENOSON NUCLEAR STRESS TEST (12/11/2021): 1. Normal heart rate and blood pressure response to regadenoson with resting hypertension. 2. There was no chest discomfort or electrocardiogram changes during the test. 3. There were isolated premature ventricular complexes during the test. 4. There was normal myocardial perfusion in all segments without evidence of infarction or ischemia. 5. There was normal wall motion in all segments with a calculated ejection fraction of 65%. ECHOCARDIOGRAM (12/11/2021): 1. This is a technically difficult study due to poor image quality secondary to patient's body habitus. Intravenous contrast was administered to enhance image quality. 2. Left ventricle: The cavity size is normal. There is moderate concentric hypertrophy. Systolic function is normal. The estimated ejection fraction is 55- 60%. There were no regional wall motion abnormalities identified. The left ventricular diastolic function is indeterminate. 3. Mitral valve: The annulus is mildly calcified. 4. Pulmonary arteries: The pulmonary artery pressure cannot be estimated on this study due to inadequate tricuspid regurgitant envelope. Diagnosis/Problems Diagnosis/Problems (1) Chest pain Assessment & Plan: Exact etiology unclear. She had negative troponin levels and only nonspecific changes on her electrocardiogram. Her symptoms are almost identical to the symptoms she had prior to her ERCP and cholecystectomy. She does have a retained gallstone. I suspect her symptoms could be due to this gallstone and/or possibly esophageal reflux disease. I concur with continuing Carafate and proton pump inhibitor. Her echocardiogram did not show any structural heart disease to explain chest pain and her nuclear stress test was normal. No additional cardiac testing is indicated at this point in time. From a cardiac standpoint, she can be discharged home once her noncardiac issues are improved. I have asked her to follow-up with me in the office in 1 month just to make sure she does not have any ongoing cardiac symptoms. (2) Abnormal electrocardiogram Assessment & Plan: Her electrocardiogram shows nonspecific ST changes. However, her nuclear stress test was normal. As such, no additional cardiac testing is indicated for this borderline electrocardiographic abnormality at this point in time (3) Hypertensive urgency Status: Acute Assessment & Plan: Her blood pressure was markedly elevated at the time of admission. I increased her doxazosin from 3 mg twice daily to 4 mg twice daily and also asked her to start taking this orally as opposed to sublingual. She is on the maximum dose of metoprolol, telmisartan, and hydrochlorothiazide. Given that she is on 4 antihypertensive medications, this raises a concern for secondary causes of hypertension. She underwent a renal arterial ultrasound this morning but the results are pending. She does not need to stay in the hospital to await the result of the ultrasound. Even if this shows renal artery stenosis, we would manage this as an outpatient. We may also need to consider screening for pheochromocytoma and hyperaldosteronism but this can certainly be done as an outpatient. (4) Heart murmur Assessment & Plan: She has a heart murmur that sounds consistent with aortic stenosis versus aortic sclerosis. Her echocardiogram did not reveal any significant structural or valvular heart disease that would explain a murmur although this was a technically difficult study. I suspect she may have some degree of aortic sclerosis but this just could not be well visualized due to her body habitus. Nonetheless, she did have adequate Doppler examination and this did not show any significant aortic stenosis or mitral regurgitation. (5) Cholelithiasis Assessment & Plan: As above, I would question whether or not this retained ga llstone could be causing her symptoms. She plans to follow-up with her image assembler in [place] after discharge. She may need another ERCP. (6) Morbid obesity Assessment & Plan: She needs to work on weight loss. KENA CHRISTENSEN JR, MD Dec 11, 2021 15:07
[2021-12-11 15:23] VITALS: BP 155/63
--- NOTE | 2021-12-11 15:56 | NUCLEAR STRESS TEST ---
REGADENOSON NUCLEAR STRESS Date of procedure: 12/11/2021. Primary care provider: Louise Oakes MD Admitting physician: Jennifer Sutherland MD. INDICATION: Abnormal electrocardiogram. BASELINE ELECTROCARDIOGRAM: Sinus rhythm with sinus arrhythmia, poor R wave progression and nonspecific ST-T wave changes. STRESS TEST PROCEDURE: The patient was administered 0.4 mg of intravenous Regadenoson. The resting heart rate was 73 bpm and the peak heart rate was 87 bpm. The resting blood pressure was 193/86 mmHg and the minimum blood pressure was 177/73 mmHg. This represents a normal heart rate and a normal blood press ure response to Regadenoson with resting hypertension. The test was stopped due to the protocol. There was no chest discomfort during the test. There were isolated premature ventricular complexes during the test. There were no significant stress induced electrocardiogram changes. NUCLEAR PROCEDURE: The patient was administered 10.8 mCi of intravenous technetium 99m Tetrofosmin at rest for the rest images. The patient was subsequently administered 30.5 mCi of intravenous technetium 99m Tetrofosmin at peak stress for the stress images. Following an appropriate wait after each injection, imaging was obtained. The images were subsequently processed and reformatted in the usual views. Gated imaging was obtained. The image quality was adequate with a mild degree of gastrointestinal and breast attenuation artifact. CT attenuation correction was used as a adjunct to standard imaging. Both the corrected and uncorrected images were reviewed for interpretation. NUCLEAR RESULTS: There was normal myocardial perfusion in all segments without evidence of infarction or ischemia. There was normal left ventricular chamber size with an end-diastolic volume of 88 mL and an end-systolic volume of 31 mL. There was no evidence of transient ischemic dilatation. The TID ratio was 1.06. There was normal wall motion in all segments with a calculated ejection fraction of 65%. IMPRESSION: 1. Normal heart rate and blood pressure response to regadenoson with resting hypertension. 2. There was no chest discomfort or electrocardiogram changes during the test. 3. There were isolated premature ventricular complexes during the test. 4. There was normal myocardial perfusion in all segments without evidence of infarction or ischemia. 5. There was normal wall motion in all segments with a calculated ejection fraction of 65%. Certain portions of this document may have been dictated utilizing voice recogni tion technology. Inherent to this technology, typographical and grammatical errors may exist. As much as I am diligent to identify and correct these mistakes, some errors may remain in the document. KENA CHRISTENSEN JR, MD Dec 11, 2021 15:56
[2021-12-11 16:00] VITALS: BP 155/63
[2021-12-11] MEDS ORDERED: DOXA4TAB2 PO (17:27)
[2021-12-11] MEDS ORDERED: HYOS0.1283 SL (17:27)
[2021-12-11] MEDS ORDERED: PANT40TA52 PO (17:27)
--- NOTE | 2021-12-11 17:33 | Discharge Inst-Simple/Standard ---
Discharge Inst-Standard Reconcile Patient Problems Problems Reviewed?: Yes Discharge Medications New, Converted or Re-Newed RX: Transmitted to Pharmacy Patient Instructions/Follow Up Plan of Care/Instructions/FU: 1 wk [facility] [address] Keerthi murrieta sleep study questionaire at [facility] Activity as Tolerated: Yes Discharge Diet: Other Diet (bland diet, low fat diet) Return to The Hospital For: any concern for acute worsening of abdominal pain, nausea which is intractable, or acute and persistent elevation of blood pressure Medication List: Active Scripts Active Levsin-Sl (Hyoscyamine Sulfate) 0.125 Mg Tab.subl 0.125 Mg SL TID PRN spasms of stomach/gi tract Pantoprazole Sodium 40 Mg Tablet.dr 40 Mg PO DAILY for reflux Doxazosin Mesylate 4 Mg Tablet 4 Mg PO BID to be taken twice daily and may take an extra 1/2 tab prn sbp greater than 170 Reported K-Tab ER (Potassium Chloride) 10 Meq Tablet.er 10 Meq PO BID LAST FILLED 08-09-2021 #180/90 DAY SUPPLY Sucralfate 1 Gram Tablet 1 Gm PO TIDAC Allopurinol 100 Mg Tablet 100 Mg PO DAILY Sertraline HCl 100 Mg Tablet 100 Mg PO DAILY Metoprolol Tartrate 100 Mg Tablet 100 Mg PO BID LAST FILLED 08-09-2021 #180/90 DAY SUPPLY Telmisartan-Hctz 80-25 mg Tab (Telmisartan/Hydrochlorothiazid) 1 Each Tablet 1 Each PO DAILY Lab results: Laboratory Tests Test 12/11/21 05:23 Range/Units White Blood Count 9.6 4.3-11.0 10^3/uL Red Blood Count 3.47 L 3.80-5.11 10^6/uL Hemoglobin 10.1 L 11.5-16.0 g/dL Hematocrit 32 L 35-52 % Mean Corpuscular Volume 93 80-99 fL Mean Corpuscular Hemoglobin 29 25-34 pg Mean Corpuscular Hemoglobin Concent 31 L 32-36 g/dL Red Cell Distribution Width 14.8 H 10.0-14.5 % Platelet Count 173 130-400 10^3/uL Mean Platelet Volume 11.5 9.0-12.2 fL Sodium Level 141 135-145 MMOL/L Potassium Level 3.4 L 3.6-5.0 MMOL/L Chloride Level 102 98-107 MMOL/L Carbon Dioxide Level 27 21-32 MMOL/L Anion Gap 12 5-14 MMOL/L Blood Urea Nitrogen 16 7-18 MG/DL Creatinine 0.73 0.60-1.30 MG/DL Estimat Glomerular Filtration Rate 90 BUN/Creatinine Ratio 22 Glucose Level 136 H 70-105 MG/DL Calcium Level 8.7 8.5-10.1 MG/DL My orders: Orders - TIM OROZCO MD Definity 1.5ml Vial (12/11/21 ) Attending Discharge Inpt/Inobs (12/11/21 17:29) TIM OROZCO MD Dec 11, 2021 17:33
--- NOTE | 2021-12-11 17:39 | Diagnostic Imaging Report ---
INDICATION: Hypertensive urgency. COMPARISON: None. TECHNIQUE: Routine grayscale and color flow images of both kidneys were performed. Renal duplex/Doppler evaluation of the renal arteries was also performed. FINDINGS: Performing delivery technician reports limited examination due to large patient body habitus. Right kidney measures 11.5 cm in length, and the left measures 10.2 cm. Cortical thickness and corticomedullary differentiation are grossly maintained. There is no evidence of hydronephrosis, calculus, nor mass on either side. Abdominal aorta peak systolic velocity: 101 cm/s. Right renal artery Doppler peak systolic velocities range from 116 cm/s to 135 cm/s. This results in ratios ranging from 1.1 - 1.3. This is within normal limits. Waveform demonstrates normal brisk systolic upstroke. Left renal artery Doppler peak systolic velocities range from 172 cm/s to 229 cm/s. This results in ratios ranging from 1.7 to 2.3. This is within normal limits as well. Waveform evaluation demonstrates normal brisk systolic upstroke. Arcuate artery resistive indices range from 0.73 to 0.86. This is slightly elevated. IMPRESSION: 1. Normal grayscale and color-flow appearance of the bilateral kidneys. 2. No hydronephrosis or focal mass. 3. No imaging findings to suggest renal artery stenosis on either side. 4. Slightly elevated resistive indices. These are nonspecific and can be seen in arteriosclerosis resulting from long-standing hypertension or diabetes. Please correlate with clinical history. Dictated by: Dictated on workstation # [id number]
[2021-12-11] MEDS ORDERED: ACHD5005 PO (17:44)
--- NOTE | 2021-12-11 17:44 | Discharge Summary ---
Diagnosis/Chief Complaint Date of Admission Dec 08, 2021 at 16:40 Date of Discharge Discharge Date: Dec 11, 2021 Discharge Time: 1730 Admission Diagnosis Admission Diagnosis HTN Emergency Chest pain Hypoxia Depression Hyperglycemia Gout Gallstone Discharge Diagnosis Hypertensive Emergency Chest pain Hypoxia Depression Hyperglycemia Gout Retained Gallstone Abdominal pain Reason Hospital Visit Patient is a 66-year-old female with past medical history of hypertension who presented to the emergency department due to chest pain. She was seen in the emergency department the day before with similar symptoms and was treated with Gaviscon which improved her symptoms. She went home and was doing well but on the evening of December 07 around 7 PM her chest pain returned. She also had some nausea and dry heaving. She took the medicine that she was prescribed from the emergency department, Carafate, which did not help her symptoms. Yesterday morning she called her primary care doctor to try to be seen that day but could not get until the afternoon. She states her pain was too severe to wait so decided to seek evaluation again in the emergency department. She was found to be quite hypertensive with a blood pressure of 225/107. She was given 10 mg of IV hydralazine along with fentanyl and Carafate for pain. Her blood pressure improved slightly but was still over 180 so she was admitted for hypertensive emergency. This morning she reports feeling better and has had no further chest pain. Discharge Summary Procedures: stress testing renal ultrasound ct angio abd/pelvis Consultations dr. fong - cardiology Discharge Physical Examination Allergies: Coded Allergies: No Known Drug Allergies (Unverified , 09/15/15) Vitals & I&Os Vital Signs Date Time Temp Pulse Resp B/P (MAP) Pulse Ox O2 Delivery O2 Flow Rate FiO2 12/11/21 16:00 36.6 80 18 155/63 (93) 92 Room Air 12/11/21 08:50 1.00 General Appearance: Alert, Oriented X3, Cooperative, No Acute Distress HEENT: Atraumatic, PERRLA, Mucous Memb Moist/[place] Respiratory: Clear to Auscultation, Normal Air Movement Cardiovascular: Regular Rate Abdominal: Normal Bowel Sounds, Soft, No Tenderness Extremities: No Cyanosis Skin: No Breakdown Neuro: Normal Speech Psych/Mental Status: Mental Status NL, Mood NL Hospital Course Was the Problem List Reviewed?: Yes Hypertensive Emergency Chest pain Hypoxia Depression Hyperglycemia Gout Retained Gallstone Abdominal pain Hypertensive Emergency with Chest pain - consult sent to Dr. Fong - verbal report from Dr. Fong Hypoxia - nocturnal hypoxia - pt required 1 liter oxygen via NC at HS - will have pt do home sleep study - questionaire to be filled out at the [facility] and scheduled through via diogo once epiworth sleepiness scale questions are complete. Hyperglycemia - monitor labs as outpatient. Gout - stable on allopurinol Retained Gallstone with Abdominal pain - rx for levsin sent to pharmacy for spasms of gi tract - - advised pt she needs to call to Dr. Pendleton's office for evaluation - she probably needs an ERCP to see if the stone can be retrieved. - low dose hydrocodone for severe pain sent to [facility] DC to home today - Discharge Condition at discharge improving Instructions to patient/family Please see electronic discharge instructions given to patient. Discharge Medications Reviewed and agree with Discharge Medication list on patient's Discharge Instruction sheet Clinical Quality Measures AMI/AHF: ASA po Prior to arrival: No TIM OROZCO MD Dec 11, 2021 17:44
[2021-12-11 18:19] VITALS: BP 155/63
== END 2021-12-11 18:15 | disposition home or self-care (01) ==
LOC: EDUNIT# 08:17 → ER 08:19 → CSD 16:40 → 4TH 12-10 10:50
PROVIDERS: ADMIT Family Medicine; ATTEND Family Medicine
DX: I16.1 Hypertensive emergency (principal); F32.A Depression, unspecified; R73.9 Hyperglycemia, unspecified; M10.9 Gout, unspecified; K80.20 Calculus of gallbladder without cholecystitis without obstruction; R09.02 Hypoxemia; Z79.899 Other long term (current) drug therapy
CPT/HCPCS: 71045; 71275; 74177; 76705; 76770; 78452; 80048 ×2; 80053; 80061; 83036; 83690; 83735; 83874; 84443; 84484; 85025; 85027 ×2; 85610; 85652; 85730; 86141; 87636; 93005; 93017; 93041; 93975; 94760 ×2; 96372 ×2; 96374; 96375; 96376; 99284; A9502; C8929; G0378 ×2; 36415; 93306

== ENCOUNTER 2021-12-27 12:41 | Outpatient (CLI) | payer MEDICARE ==
[~2021-12-27 12:41] MED LIST changes: +ACHD5005 PO; +DOXA2TAB2 SL; +DOXA4TAB2 PO; +HYOS0.1283 SL; +PANT40TA52 PO; +POTA10TA PO; +SUCR1TAB PO
== END 2021-12-27 13:15 ==
LOC: SLEEP 12:41
PROVIDERS: ATTEND Family Medicine
DX: G47.33 Obstructive sleep apnea (adult) (pediatric) (principal); I10 Essential (primary) hypertension
CPT/HCPCS: G0399